=== PATIENT | female | born 1935 | race Caucasian/White ===

== ENCOUNTER 2018-06-08 17:49 | Inpatient (IN) ==
[2018-06-09] MEDS: *HR* OxyCODONE Immed Rel 5 MG TABLET PO PRN ×3 (04:34→23:52)
[2018-06-09 06:05] LABS: Basophils # 0.1 K/mcL (0.0-0.2); Basophils % 1.3 %; Eosinophils # 0.3 K/mcL (0.0-0.6); Eosinophils % 3.9 %; Hematocrit 34.1 % (35.3-44.9); Hemoglobin 11.3 g/dL (11.5-15.4); Immature Granulocytes % 0.9 % (0-4); Lymphocytes # 1.8 K/mcL (0.6-4.6); Lymphocytes % 27.6 %; Mean Corpuscular HGB Conc 33.1 g/dL (31.6-35.5); Mean Corpuscular Hemoglobin 32.8 pg (28.0-33.3); Mean Corpuscular Volume 98.8 fL (83.0-100.0); Mean Platelet Volume 10.9 fL (9.4-12.4); Monocytes # 0.8 K/mcL (0.0-1.3); Monocytes % 13.2 %; Neutrophils # 3.4 K/mcL (1.6-8.9); Platelet Count 220 K/mcL (140-400); Red Blood Count 3.45 M/mcL (3.82-4.97); Red Cell Distribution Width 14.2 % (11.5-14.5); Segmented Neutrophils % 53.1 %
[2018-06-09 06:08] LABS: Prothrombin Time 11.7 Seconds (9.4-12.1)
[2018-06-09] MEDS: Multivit/Ca/Min/Fe/FA 1 TAB TABLET PO SCH (09:05)
[2018-06-09] MEDS: Aspirin 81 MG TAB.CHEW PO SCH (09:05)
[2018-06-09] MEDS: diazePAM 2 MG TABLET PO SCH ×2 (09:06→20:38)
[2018-06-09] MEDS: *HR* Heparin 5,000 UNIT/ML VIAL SQ SCH ×3 (09:06→23:49)
[2018-06-09] MEDS: Lactobacillus 1 EACH CAP.SPRINK PO SCH (09:06)
[2018-06-09 11:21] LABS: Albumin 3.7 g/dL (3.5-5.7); Albumin/Globulin Ratio 1.3 (1.1-2.2); Bilirubin,Total 0.6 mg/dL (0.3-1.0); Calcium 9.5 mg/dL (8.6-10.3); Globulin 2.9 g/dL (2.4-3.5); Potassium 4.3 mEq/L (3.5-5.1); Total Protein 6.6 g/dL (6.4-8.9)
--- NOTE | 2018-06-09 12:29 | Internal Med History&Physical ---
Date of Encounter: 06/09/18 Time of Encounter: 12:31 Assessment and Plan (1) Closed right hip fracture Current visit: Yes Status: Acute PT and OT to eval and treat. Will follow progress. Continue current pain medications. Follow up with ortho as scheduled. Surgery was with Dr. Mitchell on June 05 Qualifiers: Encounter type: sequela Qualified Code(s): S72.001S - Fracture of unspecified part of neck of right femur, sequela (2) DVT prophylaxis Current visit: Yes Status: Acute continue heparin (3) Fracture of right ulnar styloid Current visit: Yes Status: Acute Continue cast. Follow up with ortho as scheduled. Continue current pain medication. Qualifiers: Encounter type: sequela Fracture type: closed Fracture alignment: nondisplaced Qualified Code(s): S52.614S - Nondisplaced fracture of right ulna styloid process, sequela (4) Hyperlipidemia Current visit: Yes Status: Acute Continue current Statin Qualifiers: Hyperlipidemia type: unspecified Qualified Code(s): E78.5 - Hyperlipidemia , unspecified (5) Hypertension Current visit: Yes Status: Acute Controlled with current medication. Will monitor blood pressure. Qualifiers: Hypertension type: essential hypertension Qualified Code(s): I10 - Essential (primary) hypertension Internal Medicine - H&P: HPI Admitted From: Hospital to Hospital Transfer Plans for Post Hospital Care: Home History of present illness: Ms. Lizarraga is a 82 year old female admitted to inpatient rehab unit from [facility] status post right hip fracture and right radial styloid fracture after a fall. Past medical history includes arthritis, hypertension and hyperlipidemia. States she fell in her kitchen and hit her right arm as she felt to the ground. States pain is in control at this time. Medications. Denies fever, chills, nausea, vomiting or diarrhea. Denies chest pain or shortness of breath. Patient lives at home in a two-story home however states she does not have to go upstairs. Everything is set up for first-floor living. Past Med Surg Social Fam HX - Past Medical History Medical history: arthritis, GERD, hyperlipidemia, hypertension, other Additional medical history: Hypothyroidism, Anxiety Psychiatric history: anxiety - Past Surgical History Additional surgical history: Back surgery x3. Hernia surgeries x2. Lt foot surgery. Lt toe surgery. Varicose vein surgery. Rt knee surgery - Social History Smoking Status: Never smoker Smokeless Tobacco Status: No Alcohol use: none Drug use: none - Family History Mother Living Status: Hx Family Cancer: Yes Father Living Status: Hx Family Cardiac Disorders: Yes Internal Medicine - H&P: Meds Amitriptyline [Elavil] 50 mg PO HS 07/09/16 [History] Furosemide [Lasix] 20 mg PO Q48H 07/09/16 [History] Omeprazole [PriLOSEC] 20 mg PO DAILY 07/09/16 [History] Pravastatin Sodium [Pravachol] 40 mg PO DAILY 07/09/16 [History] Zonisamide [Zonegran] 100 mg PO HS 07/09/16 [History] Aspirin Enteric Coated [Aspirin EC] 162 mg PO DAILY 06/04/18 [History] Calcium Carbonate [Calcium] 500 mg PO DAILY 06/04/18 [History] Lactobacillus Acidophilus/Fos [Acidophilus Probiotic Tablet] 1 each PO DAILY 07/12 [History] Lisinopril [Zestril] 10 mg PO DAILY 06/04/18 [History] Multivit-Minerals/Folic/Ginkgo [One Daily For Women 50+ Adv Tb] 1 each PO DAILY 06/04/18 [History] OXYCODONE Oral CONC [Oxycodone Oral Conc] 10 mg SL Q4H PRN 3 Days #18 oral.syg 06/08/18 [Rx] diazePAM [Valium] 2 mg PO BID 3 Days #6 tablet 06/08/18 [Rx] 3 Allergy/AdvReac Type Severity Reaction Status Date / Time Penicillins Allergy Hives Verified 06/04/18 11:37 levofloxacin [From Levaquin] AdvReac Tendonitis Verified 06/04/18 11:37 All Systems PM: A 10-system review of systems was performed and is negative for pertinent findings except as documented above in the HPI. - Constitutional Constitutional: no chills, no fever(s), no night sweats - EENT Eyes: no change in vision, no discharge, no pain, no photophobia Ears: no ear discharge, no ear pain, no tinnitus Nose, mouth and throat: no dysphagia, no nasal discharge, no neck pain, no sore throat - Cardiovascular Cardiovascular ROS IM: no chest pain, no diaphoresis, no dyspnea, no lightheadedness, no palpitations, no syncope - Respiratory Respiratory: no cough, no dyspnea, no wheezing, no excessive phlegm production - Gastrointestinal Gastrointestinal: no abdominal pain, no diarrhea, no hematemesis, no hematochezia, no melena, no nausea, no vomiting - Genitourinary Genitourinary: no change in urinary stream, no dysuria, no flank pain, no hematuria - Musculoskeletal Musculoskeletal ROS IM: no numbness, no tingling - Integumentary Integumentary IM: no rash, no unusual bruising - Neurological Neurological ROS: no confusion, no convulsions, no focal weakness, no numbness, no tingling, no tremor(s) - Hematologic/Lymphatic Hematologic/Lymphatic: no easy bruising - Constitutional Vitals: Temp Pulse Resp BP Pulse Ox 98.4 F 79 16 125/69 90 06/09/18 09:00 06/09/18 09:00 06/09/18 09:00 06/09/18 09:00 06/09/18 09:00 General appearance: Present: cooperative, A&O X 3, pleasant, no acute distress, answers questions appropriately - Head Head exam: Present: atraumatic, normocephalic - Eye Eye exam: Present: PERRL, conjuntiva pink, sclera anicteric Pupils: Present: PERRL - Neck Neck exam general surgery: Present: supple, trachea midline. Absent: lymphadenopathy - Respiratory Respiratory exam: Present: CTAB. Absent: accessory muscle use, rales, rhonchi, wheezes - Cardiovascular Cardiovascular exam: Present: RRR, +S1, +S2. Absent: diastolic murmur, gallop, rubs, systolic murmur - GI/Abdominal GI/Abdominal exam: Present: normal bowel sounds, soft, no peritoneal signs. Absent: distended, tenderness - Extremities Exam Extremities exam: Present: warm, radial pulses palpable and symmetrical. Absent : calf tenderness, cyanotic, pedal edema Additional comments: Right forearm in cast. Moderate amount of edema 2 fingers. Capillary refill normal. - Incison Comments: Right hip incision dressing dry and intact. Surrounding ecchymosis. - Neurological Exam Neurological exam: Present: CN II-XII intact, oriented X3, no focal deficits. Absent: pronater drift, facial droop, speech deficit - Skin Skin exam: Present: dry, intact Internal Med - H&P Results - Labs CBC & Chem 7: 06/09/18 05:50 06/09/18 11:00 Labs: Short CBC 06/09/18 Range/Units 05:50 WBC 6.4 (4.3-11.1) K/mcL Hgb 11.3 L (11.5-15.4) g/dL Hct 34.1 L (35.3-44.9) % Plt Count 220 (140-400) K/mcL Neutrophils # 3.4 (1.6-8.9) K/mcL BMP 06/09/18 11:00 Sodium 140 Potassium 4.3 Chloride 103 Carbon Dioxide 26 BUN 13 Creatinine 1.11 Glucose 100 Calcium 9.5 Liver Function 06/09/18 Range/Units 11:00 Total Bilirubin 0.6 (0.3-1.0) mg/dL AST 31 (13-39) Units/L ALT 25 (7-52) Units/L Alkaline Phosphatase 74 (34-104) Units/L Albumin 3.7 (3.5-5.7) g/dL
[2018-06-10] MEDS: *HR* OxyCODONE Immed Rel 5 MG TABLET PO PRN ×2 (07:49→16:58)
[2018-06-10] MEDS: *HR* Heparin 5,000 UNIT/ML VIAL SQ SCH ×2 (07:50→16:51)
[2018-06-10] MEDS: Multivit/Ca/Min/Fe/FA 1 TAB TABLET PO SCH (07:50)
[2018-06-10] MEDS: Aspirin 81 MG TAB.CHEW PO SCH (07:50)
[2018-06-10] MEDS: Lactobacillus 1 EACH CAP.SPRINK PO SCH (07:50)
[2018-06-10] MEDS: diazePAM 2 MG TABLET PO SCH ×2 (07:50→19:56)
--- NOTE | 2018-06-10 10:43 | Internal Med Progress Note ---
Date of Encounter: 06/10/18 Time of Encounter: 10:41 - Assessment and plan (1) Closed right hip fracture Current Visit: Yes Status: Acute Assessment and plan: Continue PT and OT. Will follow progress. Continue current pain medication. Follow up with ortho as scheduled. Qualifiers: Encounter type: sequela Qualified Code(s): S72.001S - Fracture of unspecified part of neck of right femur, sequela (2) DVT prophylaxis Current Visit: Yes Status: Acute Assessment and plan: Continue heparin (3) Fracture of right ulnar styloid Current Visit: Yes Status: Acute Assessment and plan: Continue cast. Follow up with ortho as scheduled. Pain controlled. Qualifiers: Encounter type: sequela Fracture type: closed Fracture alignment: nondisplaced Qualified Code(s): S52.614S - Nondisplaced fracture of right ulna styloid process, sequela (4) Hyperlipidemia Current Visit: Yes Status: Acute Assessment and plan: Continue current Statin Qualifiers: Hyperlipidemia type: unspecified Qualified Code(s): E78.5 - Hyperlipidemia , unspecified (5) Hypertension Current Visit: Yes Status: Acute Assessment and plan: Controlled with current medication. Monitor blood pressure. Qualifiers: Hypertension type: essential hypertension Qualified Code(s): I10 - Essential (primary) hypertension - Time Spent With Patient 25 - 35 minutes - Subjective Interval history: Participating well with therapy men assist to transfer. Ambulating with Walker times 60 feet with physical therapy. Pain controlled with current medication. Maintaining appetite and hydration. Bowels have not moved since hip surgery. Discussed ordering Miralax twice a day. Patient takes at home. Denies shortness of breath, chest pain, should fever, chills, nausea vomiting or diarrhea. - Constitutional Vitals: Temp Pulse Resp BP Pulse Ox 97.8 F 98 18 143/81 98 06/10/18 07:45 06/10/18 07:45 06/10/18 07:45 06/10/18 07:45 06/10/18 07:45 General appearance: Present: cooperative, A&O X 3, pleasant, no acute distress, answers questions appropriately - Head Head exam: Present: atraumatic, normocephalic - Eye Eye exam: Present: PERRL, conjuntiva pink, sclera anicteric Pupils: Present: PERRL - Neck Neck exam general surgery: Present: supple, trachea midline. Absent: lymphadenopathy - Respiratory Respiratory exam: Present: CTAB. Absent: accessory muscle use, rales, rhonchi, wheezes - Cardiovascular Cardiovascular exam: Present: RRR, +S1, +S2. Absent: diastolic murmur, gallop, rubs, systolic murmur - GI/Abdominal GI/Abdominal exam: Present: normal bowel sounds, soft, no peritoneal signs. Absent: distended, tenderness - Extremities Exam Extremities exam: Present: warm, radial pulses palpable and symmetrical. Absent : calf tenderness, cyanotic, pedal edema Additional comments: Right arm in cast. Normal capillary refill. Slight edema to fingers - Incison Comments: Right hip incision dressing dry and intact. Surrounding ecchymosis. - Neurological Exam Neurological exam: Present: CN II-XII intact, oriented X3, no focal deficits. Absent: pronater drift, facial droop, speech deficit - Skin Skin exam: Present: dry, intact Internal Medicine: Result - Labs CBC & Chem 7: 06/09/18 05:50 06/09/18 11:00 Labs: BMP 06/09/18 11:00 Sodium 140 Potassium 4.3 Chloride 103 Carbon Dioxide 26 BUN 13 Creatinine 1.11 Glucose 100 Calcium 9.5 Liver Function 06/09/18 Range/Units 11:00 Total Bilirubin 0.6 (0.3-1.0) mg/dL AST 31 (13-39) Units/L ALT 25 (7-52) Units/L Alkaline Phosphatase 74 (34-104) Units/L Albumin 3.7 (3.5-5.7) g/dL - ABG Interpretation ABG results: PT/INR, D-dimer PT 11.7 Seconds (9.4-12.1) 06/09/18 05:50 Consult Discharge Plan - Plan Referrals: Brittany Queen MD [Primary Care Provider] -
--- NOTE | 2018-06-11 13:56 | Internal Med Progress Note ---
Date of Encounter: 06/11/18 Time of Encounter: 13:54 - Assessment and plan (1) Closed right hip fracture Current Visit: Yes Status: Acute Assessment and plan: We will continue with therapies as planned. Tolerating well thus far. Qualifiers: Encounter type: sequela Qualified Code(s): S72.001S - Fracture of unspecified part of neck of right femur, sequela (2) Leukocytosis Current Visit: No Status: Acute Assessment and plan: Essentially resolved. Qualifiers: Leukocytosis type: unspecified Qualified Code(s): D72.829 - Elevated white blood cell count, unspecified (3) Hypertension Current Visit: Yes Status: Acute Assessment and plan: Clinically stable. We will continue home regimen and follow. Qualifiers: Hypertension type: essential hypertension Qualified Code(s): I10 - Essential (primary) hypertension (4) Hyperlipidemia Current Visit: Yes Status: Acute Assessment and plan: Clinically stable. We will continue home regimen and follow. Qualifiers: Hyperlipidemia type: unspecified Qualified Code(s): E78.5 - Hyperlipidemia, unspecified (5) Fracture of right ulnar styloid Current Visit: Yes Status: Acute Assessment and plan: Well-tolerated and therapy persists. Qualifiers: Encounter type: sequela Fracture type: closed Fracture alignment: nondisplaced Qualified Code(s): S52.614S - Nondisplaced fracture of right ulna styloid process, sequela - Subjective Interval history: Patient without complaint. She is tired after therapy but feels that she is otherwise doing okay. Moving bowels well. No other complaints. Patient has no complaint of chest discomfort, dyspnea, orthopnea, palpitations, nausea or vomiting, constipation or diarrhea, other changes in bowel habits, difficulty with urination, rash or itching, or other new complaints, except as mentioned above. Review of systems is otherwise negative. I discussed management of her care with nursing staff. - Constitutional Vitals: Temp Pulse Resp BP Pulse Ox 97.6 F 84 16 119/85 95 06/11/18 07:00 06/11/18 07:00 06/11/18 07:00 06/11/18 07:00 06/11/18 07:00 Exam: Examination: (Except as mentioned above): General: In no apparent distress. Alert and oriented 3. Nondiaphoretic. Head: Atraumatic and normocephalic. Respiratory: No use of accessory muscles. Lungs are clear throughout. Normal airflow. Cardiovascular: Regular rate and rhythm without murmur appreciated. Abdomen: Bowel sounds are normal. No hepatosplenomegaly mass or tenderness appreciated. Obese and therefore difficult to palpate deeply. Extremities: No cyanosis clubbing or edema. Skin: Warm and non-diaphoretic with no new lesions noted. Internal Medicine: Result - Labs CBC & Chem 7: 06/09/18 05:50 06/09/18 11:00 - ABG Interpretation ABG results: PT/INR, D-dimer PT 11.7 Seconds (9.4-12.1) 06/09/18 05:50 Consult Discharge Plan - Plan Referrals: Brittany Queen MD [Primary Care Provider] -
[2018-06-11] MEDS ORDERED: *HR* Heparin 5,000 UNIT/ML VIAL IVP ONE (14:59)
[2018-06-11] MEDS ORDERED: Multivit/Ca/Min/Fe/FA 1 TAB TABLET PO ONE (14:59)
[2018-06-11] MEDS ORDERED: diazePAM 2 MG TABLET PO ONE (14:59)
[2018-06-11] MEDS ORDERED: Lactobacillus 1 EACH CAP.SPRINK PO ONE (14:59)
[2018-06-11] MEDS ORDERED: Aspirin 81 MG TAB.CHEW PO ONE (14:59)
[2018-06-11] MEDS ORDERED: *HR* OxyCODONE Immed Rel 5 MG TABLET PO ONE (14:59)
[2018-06-11] MEDS: *HR* Heparin 5,000 UNIT/ML VIAL SQ SCH ×3 (16:53→23:49)
[2018-06-11] MEDS: *HR* OxyCODONE Immed Rel 5 MG TABLET PO PRN (20:01)
[2018-06-11] MEDS: diazePAM 2 MG TABLET PO SCH ×2 (20:01→20:05)
[2018-06-11] MEDS: Aspirin 81 MG TAB.CHEW PO SCH (20:04)
[2018-06-11] MEDS: Multivit/Ca/Min/Fe/FA 1 TAB TABLET PO SCH (20:05)
[2018-06-11] MEDS: Lactobacillus 1 EACH CAP.SPRINK PO SCH (20:05)
[2018-06-12] MEDS: Multivit/Ca/Min/Fe/FA 1 TAB TABLET PO SCH (09:40)
[2018-06-12] MEDS: Aspirin 81 MG TAB.CHEW PO SCH (09:40)
[2018-06-12] MEDS: diazePAM 2 MG TABLET PO SCH ×2 (09:40→19:41)
[2018-06-12] MEDS: Lactobacillus 1 EACH CAP.SPRINK PO SCH (09:41)
[2018-06-12] MEDS: *HR* Heparin 5,000 UNIT/ML VIAL SQ SCH ×3 (09:41→23:49)
[2018-06-12] MEDS: *HR* OxyCODONE Immed Rel 5 MG TABLET PO PRN ×2 (09:41→19:40)
--- NOTE | 2018-06-12 11:49 | Internal Med Progress Note ---
Addendum entered and electronically signed by Ross Calloway MD 06/12/18 12:51: I have personally performed a face to face evaluation on this patient. I have r eviewed and agree with the care plan. History and Exam by me shows: Patient feels that she is getting better with therapies. She is moving her bowels well. She had some shoulder pain with therapy but this is fine, at rest. Discussed care with other providers and/or nursing. Patient has no complaint of chest discomfort, dyspnea, orthopnea, palpitations, nausea or vomiting, constipation or diarrhea, other changes in bowel habits, difficulty with urination, rash or itching, or other new complaints, except as mentioned above. Review of systems is otherwise negative. Examination: (Except as mentioned above): General: In no apparent distress. Alert and oriented 3. Nondiaphoretic. Head: Atraumatic and normocephalic. Respiratory: No use of accessory muscles. Lungs are clear throughout. Normal airflow. Cardiovascular: Regular rate and rhythm without murmur appreciated. Abdomen: Bowel sounds are normal. No hepatosplenomegaly mass or tenderness appreciated. Obese and therefore difficult to palpate deeply. Extremities: No cyanosis clubbing or edema. Skin: Warm and non-diaphoretic with no new lesions noted. Original Note: Date of Encounter: 06/12/18 Time of Encounter: 11:47 - Assessment and plan (1) Closed right hip fracture Current Visit: Yes Status: Acute Assessment and plan: Continue PT and OT. Will follow progress. Continue current pain medication. Follow up with ortho as scheduled. Qualifiers: Encounter type: sequela Qualified Code(s): S72.001S - Fracture of unspecified part of neck of right femur, sequela (2) DVT prophylaxis Current Visit: Yes Status: Acute Assessment and plan: Continue heparin (3) Fracture of right ulnar styloid Current Visit: Yes Status: Acute Assessment and plan: Continue cast. Follow up with ortho as scheduled. Pain controlled. Qualifiers: Encounter type: sequela Fracture type: closed Fracture alignment: nondisplaced Qualified Code(s): S52.614S - Nondisplaced fracture of right ulna styloid process, sequela (4) Hyperlipidemia Current Visit: Yes Status: Acute Assessment and plan: continue current meds. Qualifiers: Hyperlipidemia type: unspecified Qualified Code(s): E78.5 - Hyperlipidemia, unspecified (5) Hypertension Current Visit: Yes Status: Acute Assessment and plan: Controlled with current medication. Monitor blood pressure. Qualifiers: Hypertension type: essential hypertension Qualified Code(s): I10 - Essential (primary) hypertension - Time Spent With Patient less than 15 minutes - Subjective Interval history: Participating well with therapy. Ambulating with Walker with physical therapy. Pain controlled with current medication. Maintaining appetite and hydration. Bowels moved last night after miralax and prune juice. Denies shortness of breath, chest pain, should fever, chills, nausea vomiting or diarrhea. - Constitutional Vitals: Temp Pulse Resp BP Pulse Ox 98.5 F 82 16 115/70 97 06/12/18 07:55 06/12/18 07:55 06/12/18 07:55 06/12/18 07:55 06/12/18 07:55 General appearance: Present: cooperative, A&O X 3, pleasant, no acute distress, answers questions appropriately - Head Head exam: Present: atraumatic, normocephalic - Eye Eye exam: Present: PERRL, conjuntiva pink, sclera anicteric Pupils: Present: PERRL - Neck Neck exam general surgery: Present: supple, trachea midline. Absent: lymphadenopathy - Respiratory Respiratory exam: Present: CTAB. Absent: accessory muscle use, rales, rhonchi, wheezes - Cardiovascular Cardiovascular exam: Present: RRR, +S1, +S2. Absent: diastolic murmur, gallop, rubs, systolic murmur - GI/Abdominal GI/Abdominal exam: Present: normal bowel sounds, soft, no peritoneal signs. Absent: distended, tenderness - Extremities Exam Extremities exam: Present: warm, radial pulses palpable and symmetrical. Absent: calf tenderness, cyanotic, pedal edema Additional comments: To right forearm. Slight edema to fingers. capillary refill normal. - Incison Comments: Right hip incision dressing dry and intact. - Neurological Exam Neurological exam: Present: CN II-XII intact, oriented X3, no focal deficits. Absent: pronater drift, facial droop, speech deficit - Skin Skin exam: Present: dry, intact Internal Medicine: Result - Labs CBC & Chem 7: 06/09/18 05:50 06/09/18 11:00 - ABG Interpretation ABG results: PT/INR, D-dimer PT 11.7 Seconds (9.4-12.1) 06/09/18 05:50 Consult Discharge Plan - Plan Referrals: Brittany Queen MD [Primary Care Provider] -
[2018-06-13] MEDS: Aspirin 81 MG TAB.CHEW PO SCH (07:57)
[2018-06-13] MEDS: Multivit/Ca/Min/Fe/FA 1 TAB TABLET PO SCH (07:57)
[2018-06-13] MEDS: diazePAM 2 MG TABLET PO SCH ×2 (07:58→19:30)
[2018-06-13] MEDS: *HR* Heparin 5,000 UNIT/ML VIAL SQ SCH ×3 (07:58→23:07)
[2018-06-13] MEDS: Lactobacillus 1 EACH CAP.SPRINK PO SCH (07:58)
[2018-06-13] MEDS: *HR* OxyCODONE Immed Rel 5 MG TABLET PO PRN ×2 (08:11→23:07)
--- NOTE | 2018-06-13 15:08 | Internal Med Progress Note ---
Date of Encounter: 06/13/18 Time of Encounter: 14:55 - Assessment and plan (1) Hypertension Current Visit: Yes Status: Acute Assessment and plan: Continue current therapy. Qualifiers: Hypertension type: essential hypertension Qualified Code(s): I10 - Essential (primary) hypertension (2) Hyperlipidemia Current Visit: Yes Status: Acute Assessment and plan: Continue current therapy. Qualifiers: Hyperlipidemia type: unspecified Qualified Code(s): E78.5 - Hyperlipidemia, unspecified (3) DVT prophylaxis Current Visit: Yes Status: Acute Assessment and plan: Continue subQ heparin. (4) Closed right hip fracture Current Visit: Yes Status: Acute Assessment and plan: Continue current therapy. F/U with ortho as planned. Qualifiers: Encounter type: sequela Qualified Code(s): S72.001S - Fracture of unspecified part of neck of right femur, sequela (5) Fracture of right ulnar styloid Current Visit: Yes Status: Acute Assessment and plan: Continue current therapy. Qualifiers: Encounter type: sequela Fracture type: closed Fracture alignment: nondisplaced Qualified Code(s): S52.614S - Nondisplaced fracture of right ulna styloid process, sequela - Time Spent With Patient less than 15 minutes - Subjective Interval history: Doing well and walking "okay." No concerns at this time. - Constitutional Vitals: Temp Pulse Resp BP Pulse Ox 98.9 F 71 16 127/72 93 06/13/18 07:05 06/13/18 07:05 06/13/18 07:05 06/13/18 07:05 06/13/18 07:05 General appearance: Present: cooperative, A&O X 3, pleasant, no acute distress, answers questions appropriately Exam: Gen: A&Ox3, NAD. HEENT: NCAT. Neck: No palpable lymphadenopathy or thyromegaly. CV: RRR, S1S2. No murmur. Lungs: CTAB. Abd: (+)BS. NDNT. Neuro: Non-focal. Skin: No rash. Ext: No pitting edema. Right hand in immobilizer. Internal Medicine: Result - Labs CBC & Chem 7: 06/09/18 05:50 06/09/18 11:00 - ABG Interpretation ABG results: PT/INR, D-dimer PT 11.7 Seconds (9.4-12.1) 06/09/18 05:50 Consult Discharge Plan - Plan Referrals: Brittany Queen MD [Primary Care Provider] -
[2018-06-14] MEDS: Multivit/Ca/Min/Fe/FA 1 TAB TABLET PO SCH (08:33)
[2018-06-14] MEDS: Lactobacillus 1 EACH CAP.SPRINK PO SCH (08:33)
[2018-06-14] MEDS: Aspirin 81 MG TAB.CHEW PO SCH (08:33)
[2018-06-14] MEDS: *HR* Heparin 5,000 UNIT/ML VIAL SQ SCH ×2 (08:33→16:26)
[2018-06-14] MEDS: diazePAM 2 MG TABLET PO SCH ×2 (08:33→19:43)
[2018-06-14] MEDS: *HR* OxyCODONE Immed Rel 5 MG TABLET PO PRN ×2 (08:42→19:43)
--- NOTE | 2018-06-14 13:17 | Internal Med Progress Note ---
Date of Encounter: 06/14/18 Time of Encounter: 13:00 - Assessment and plan (1) Hypertension Current Visit: Yes Status: Acute Assessment and plan: Continue current therapy and adjust as appropriate. Qualifiers: Hypertension type: essential hypertension Qualified Code(s): I10 - Essential (primary) hypertension (2) Hyperlipidemia Current Visit: Yes Status: Acute Assessment and plan: Continue current therapy. Qualifiers: Hyperlipidemia type: unspecified Qualified Code(s): E78.5 - Hyperlipidemia, unspecified (3) DVT prophylaxis Current Visit: Yes Status: Acute Assessment and plan: Continue subQ heparin. (4) Closed right hip fracture Current Visit: Yes Status: Acute Assessment and plan: Continue current therapy. F/U with ortho as planned. Qualifiers: Encounter type: sequela Qualified Code(s): S72.001S - Fracture of unspecified part of neck of right femur, sequela (5) Fracture of right ulnar styloid Current Visit: Yes Status: Acute Assessment and plan: Continue current therapy. Qualifiers: Encounter type: sequela Fracture type: closed Fracture alignment: nondisplaced Qualified Code(s): S52.614S - Nondisplaced fracture of right ulna styloid process, sequela - Time Spent With Patient less than 15 minutes - Subjective Interval history: Doing well. No concerns at this time. - Constitutional Vitals: Temp Pulse Resp BP Pulse Ox 98.5 F 68 16 101/59 100 06/14/18 07:00 06/14/18 07:00 06/14/18 07:00 06/14/18 07:00 06/14/18 07:00 General appearance: Present: cooperative, A&O X 3, pleasant, no acute distress, answers questions appropriately Exam: Gen: A&Ox3, NAD. HEENT: NCAT. Neck: No palpable lymphadenopathy or thyromegaly. CV: RRR, S1S2. No murmur. Lungs: CTAB. Abd: (+)BS. NDNT. Neuro: Non-focal. Skin: No rash. Ext: No pitting edema. Right hand in immobilizer. Internal Medicine: Result - Labs CBC & Chem 7: 06/09/18 05:50 06/09/18 11:00 - ABG Interpretation ABG results: PT/INR, D-dimer PT 11.7 Seconds (9.4-12.1) 06/09/18 05:50 Consult Discharge Plan - Plan Referrals: Brittany Queen MD [Primary Care Provider] -
[2018-06-15] MEDS: *HR* Heparin 5,000 UNIT/ML VIAL SQ SCH ×4 (00:40→23:20)
[2018-06-15 05:55] LABS: Basophils # 0.1 K/mcL (0.0-0.2); Basophils % 1.3 %; Eosinophils # 0.2 K/mcL (0.0-0.6); Eosinophils % 3.4 %; Hematocrit 32.3 % (35.3-44.9); Hemoglobin 10.7 g/dL (11.5-15.4); Immature Granulocytes % 0.8 % (0-4); Lymphocytes # 2.3 K/mcL (0.6-4.6); Lymphocytes % 36.7 %; Mean Corpuscular HGB Conc 33.1 g/dL (31.6-35.5); Mean Corpuscular Volume 99.7 fL (83.0-100.0); Mean Platelet Volume 10.3 fL (9.4-12.4); Monocytes # 0.7 K/mcL (0.0-1.3); Monocytes % 10.7 %; Neutrophils # 2.9 K/mcL (1.6-8.9); Platelet Count 342 K/mcL (140-400); Red Blood Count 3.24 M/mcL (3.82-4.97); Red Cell Distribution Width 14.6 % (11.5-14.5); Segmented Neutrophils % 47.1 %
[2018-06-15 06:14] LABS: Potassium 3.7 mEq/L (3.5-5.1)
[2018-06-15] MEDS: Aspirin 81 MG TAB.CHEW PO SCH (07:51)
[2018-06-15] MEDS: Multivit/Ca/Min/Fe/FA 1 TAB TABLET PO SCH (07:51)
[2018-06-15] MEDS: Lactobacillus 1 EACH CAP.SPRINK PO SCH (07:52)
[2018-06-15] MEDS: diazePAM 2 MG TABLET PO SCH ×2 (07:52→20:30)
--- NOTE | 2018-06-15 13:04 | Internal Med Progress Note ---
Date of Encounter: 06/15/18 Time of Encounter: 13:02 - Assessment and plan (1) Closed right hip fracture Current Visit: Yes Status: Acute Assessment and plan: She is doing well and participating well with therapy. She is for discharge, soon. Qualifiers: Encounter type: sequela Qualified Code(s): S72.001S - Fracture of unspecified part of neck of right femur, sequela (2) Leukocytosis Current Visit: No Status: Acute Assessment and plan: Resolved. Qualifiers: Leukocytosis type: unspecified Qualified Code(s): D72.829 - Elevated white blood cell count, unspecified (3) Hypertension Current Visit: Yes Status: Acute Assessment and plan: Clinically stable. Qualifiers: Hypertension type: essential hypertension Qualified Code(s): I10 - Essential (primary) hypertension (4) Hyperlipidemia Current Visit: Yes Status: Acute Assessment and plan: Continue current regimen. Qualifiers: Hyperlipidemia type: unspecified Qualified Code(s): E78.5 - Hyperlipidemia, unspecified (5) Fracture of right ulnar styloid Current Visit: Yes Status: Acute Assessment and plan: She is tolerating well and is participating in therapy without difficulty. Qualifiers: Encounter type: sequela Fracture type: closed Fracture alignment: nondisplaced Qualified Code(s): S52.614S - Nondisplaced fracture of right ulna styloid process, sequela - Subjective Interval history: Patient without complaint. She is pleased with her progress and is looking forward to going home, tomorrow. She states that bowels and bladder are moving well. Patient has no complaint of chest discomfort, dyspnea, orthopnea, palpitations, nausea or vomiting, constipation or diarrhea, other changes in bowel habits, difficulty with urination, rash or itching, or other new complaints, except as mentioned above. Review of systems is otherwise negative. I discussed management of her care with nursing staff. - Constitutional Vitals: Temp Pulse Resp BP Pulse Ox 98.0 F 71 16 115/63 94 06/15/18 06:45 06/15/18 06:45 06/15/18 06:45 06/15/18 06:45 06/15/18 06:45 Exam: Examination: (Except as mentioned above): General: In no apparent distress. Alert and oriented 3. Nondiaphoretic. Head: Atraumatic and normocephalic. Respiratory: No use of accessory muscles. Lungs are clear throughout. Normal airflow. Cardiovascular: Regular rate and rhythm without murmur appreciated. Abdomen: Bowel sounds are normal. No hepatosplenomegaly mass or tenderness appreciated. Obese and therefore difficult to palpate deeply. Patient is examined upright in chair and this also limits exam. Extremities: No cyanosis clubbing or change in edema. She has trace right ankle edema. Skin: Warm and non-diaphoretic with no new lesions noted. Internal Medicine: Result - Labs CBC & Chem 7: 06/15/18 05:50 06/15/18 05:50 Labs: Short CBC 06/15/18 Range/Units 05:50 WBC 6.2 (4.3-11.1) K/mcL Hgb 10.7 L (11.5-15.4) g/dL Hct 32.3 L (35.3-44.9) % Plt Count 342 D (140-400) K/mcL Neutrophils # 2.9 (1.6-8.9) K/mcL BMP 06/15/18 05:50 Sodium 139 Potassium 3.7 Chloride 108 H Carbon Dioxide 25 BUN 15 Creatinine 1.12 Glucose 106 H Calcium 9.0 - ABG Interpretation ABG results: PT/INR, D-dimer PT 11.7 Seconds (9.4-12.1) 06/09/18 05:50 Consult Discharge Plan - Plan Referrals: Brittany Queen MD [Primary Care Provider] -
[2018-06-15] MEDS: *HR* OxyCODONE Immed Rel 5 MG TABLET PO PRN (20:31)
[2018-06-16 07:32] VITALS: BP 128/67
[2018-06-16] MEDS: Multivit/Ca/Min/Fe/FA 1 TAB TABLET PO SCH (07:57)
[2018-06-16] MEDS: *HR* Heparin 5,000 UNIT/ML VIAL SQ SCH (07:57)
[2018-06-16] MEDS: Aspirin 81 MG TAB.CHEW PO SCH (07:57)
[2018-06-16] MEDS: diazePAM 2 MG TABLET PO SCH (07:58)
[2018-06-16] MEDS: Lactobacillus 1 EACH CAP.SPRINK PO SCH (07:58)
--- NOTE | 2018-06-16 11:26 | Discharge Summary ---
Date of Encounter: 06/16/18 Time of Encounter: 10:54 - Discharge Diagnosis (1) Closed right hip fracture Priority: Primary Status: Acute Comments: Improving. Pain controlled with current medication. Continue home physical therapy. Follow up with ortho as scheduled. Qualifiers: Encounter type: sequela Qualified Code(s): S72.001S - Fracture of unspecified part of neck of right femur, sequela (2) Fracture of right ulnar styloid Priority: Primary Status: Acute Comments: Pain controlled with current medication. Continue to wear braces. Follow up with ortho as scheduled. Qualifiers: Encounter type: sequela Fracture type: closed Fracture alignment: nondisplaced Qualified Code(s): S52.614S - Nondisplaced fracture of right ulna styloid process, sequela (3) Hyperlipidemia Priority: Secondary Status: Chronic Comments: Controlled with current medication. Monitor with PCP. Qualifiers: Hyperlipidemia type: unspecified Qualified Code(s): E78.5 - Hyperlipidemia, unspecified (4) Hypertension Priority: Secondary Status: Chronic Comments: Controlled with current medication. Monitor blood pressure. Follow up with PCP. Qualifiers: Hypertension type: essential hypertension Qualified Code(s): I10 - Essential (primary) hypertension Hospital course: Ms. Lizarraga is a 82 year old female discharging to home from inpatient rehab status post right hip fracture and right radial styloid fracture after a fall. Patient is ambulating with platform wheeled walker. Ambulating 300 feet. Will continue with home health physical therapy. Pain is controlled with current medication. Follow up with ortho as scheduled. Discharge discussed with: patient, family, nurse, social work - Time Spent with Patient Total time spent providing and/or coordinating discharge services: Less than 30 minutes - Discharge Medications Home Medications: Amitriptyline [Elavil] 50 mg PO HS 07/09/16 [History] Furosemide [Lasix] 20 mg PO Q48H 07/09/16 [History] Omeprazole [PriLOSEC] 20 mg PO DAILY 07/09/16 [History] Pravastatin Sodium [Pravachol] 40 mg PO DAILY 07/09/16 [History] Zonisamide [Zonegran] 100 mg PO HS 07/09/16 [History] Aspirin Enteric Coated [Aspirin EC] 162 mg PO DAILY 06/04/18 [History] Calcium Carbonate [Calcium] 500 mg PO DAILY 06/04/18 [History] Lactobacillus Acidophilus/Fos [Acidophilus Probiotic Tablet] 1 each PO DAILY 06/04/18 [History] Lisinopril [Zestril] 10 mg PO DAILY 06/04/18 [History] Multivit-Minerals/Folic/Ginkgo [One Daily For Women 50+ Adv Tb] 1 each PO DAILY 06/04/18 [History] OXYCODONE Oral CONC [Oxycodone Oral Conc] 10 mg SL Q4H PRN 3 Days #18 oral.syg 06/08/18 [Rx] diazePAM [Valium] 2 mg PO BID 3 Days #6 tablet 06/08/18 [Rx] Polyethylene Glycol 3350 [MiraLAX] 17 gm PO DAILY PRN powd.pack 06/16/18 [Rx] Allergies/Adverse Reactions: Allergy/AdvReac Type Severity Reaction Status Date / Time Penicillins Allergy Hives Verified 06/04/18 11:37 levofloxacin [From Levaquin] AdvReac Tendonitis Verified 06/04/18 11:37 Date of admission: 06/08/18 18:30 Primary care physician: Brittany Queen MD Consults: 06/09/18 00:23 Consult to Physical Medicine/Rehab [CONS] Routine Reason for Consult: right hip fracture with pinning/right wrist fracture sp mechanical fall Call Completed: No 06/09/18 00:43 Consult to Occupational Therapy [CONS] Routine Comment: Evaluate, develop and implement POC Reason for Consult: right hip fracture with pinning/right wrist fracture sp mechanical fall Does patient have active BEDREST order?: No Is patient medically & hemodynamically stable?: Yes Patient assessed for mobility or mobilized this visit?: No Consult to Physical Therapy [CONS] Routine Comment: Evaluate, develop and implement POC Reason for Consult: right hip fracture with pinning/right wrist fracture sp mecahical fall Does patient have active BEDREST order?: No Is patient medically & hemodynamically stable?: Yes Patient assessed for mobility or mobilized this visit?: No Consult to Recreational Therapy [CONS] Routine Comment: Evaluate, develop and implement POC Discharging clinician: Leo Kwok Anticipated date of discharge: 06/16/18 - Constitutional Vitals: Temp Pulse Resp BP Pulse Ox 98.7 F 74 16 128/67 93 06/16/18 07:00 06/16/18 07:00 06/16/18 07:00 06/16/18 07:00 06/16/18 07:00 General appearance: Present: cooperative, A&O X 3, pleasant, no acute distress, answers questions appropriately - Head Head exam: Present: atraumatic, normocephalic - Eye Eye exam: Present: PERRL, conjuntiva pink, sclera anicteric Pupils: Present: PERRL - Neck Neck exam general surgery: Present: supple, trachea midline. Absent: lymphadenopathy - Respiratory Respiratory exam: Present: CTAB. Absent: accessory muscle use, rales, rhonchi, wheezes - Cardiovascular Cardiovascular exam: Present: RRR, +S1, +S2. Absent: diastolic murmur, gallop, rubs, systolic murmur - GI/Abdominal GI/Abdominal exam: Present: normal bowel sounds, soft, no peritoneal signs. Absent: distended, tenderness - Extremities Exam Extremities exam: Present: warm, radial pulses palpable and symmetrical. Absent: calf tenderness, cyanotic, pedal edema Additional comments: Right wrist brace intact slight non-pitting edema to write pedal area - Incison Comments: Right hip incision dressing dry and intact with scattered ecchymosis surrounding incision. - Neurological Exam Neurological exam: Present: CN II-XII intact, oriented X3, no focal deficits. Absent: pronater drift, facial droop, speech deficit - Skin Skin exam: Present: dry, intact - Patient Status Disposition: Home Health Service Condition: Good Functional capacity at discharge: uses cane/walker Overall status at discharge: patient is progressing back to baseline - Discharge Instructions Follow Up With: Brittany Queen MD [Primary Care Provider] - - Diet and Activity Activity: as per physical therapy Diet: advance to your usual diet
--- NOTE | 2018-06-16 11:28 | Physician Discharge Referral ---
Home Health/Hosp Referral Info Transfer to: Home Health Provider in Charge Post Discharge: PCP - Diagnosis (1) Closed right hip fracture Priority: Primary Status: Acute (2) Fracture of right ulnar styloid Priority: Primary Status: Acute (3) Hyperlipidemia Priority: Secondary Status: Chronic (4) Hypertension Priority: Secondary Status: Chronic - Respiratory Orders Smoking Cessation: Smoking cessation has been advised. For more information, call the [place] Tobacco Quit Line at 9-094-TWGH-NOW. - Diet/Nutrition Diet/Nutrition Orders: Regular - Activity Activity Orders: Ambulate, Walker - Services Needed Following services are medically necessary services: Nursing, Physical Therapy - Transfer Medications Home Medications: Amitriptyline [Elavil] 50 mg PO HS 07/09/16 [History] Furosemide [Lasix] 20 mg PO Q48H 07/09/16 [History] Omeprazole [PriLOSEC] 20 mg PO DAILY 07/09/16 [History] Pravastatin Sodium [Pravachol] 40 mg PO DAILY 07/09/16 [History] Zonisamide [Zonegran] 100 mg PO HS 07/09/16 [History] Aspirin Enteric Coated [Aspirin EC] 162 mg PO DAILY 06/04/18 [History] Calcium Carbonate [Calcium] 500 mg PO DAILY 06/04/18 [History] Lactobacillus Acidophilus/Fos [Acidophilus Probiotic Tablet] 1 each PO DAILY 06/04/18 [History] Lisinopril [Zestril] 10 mg PO DAILY 06/04/18 [History] Multivit-Minerals/Folic/Ginkgo [One Daily For Women 50+ Adv Tb] 1 each PO DAILY 06/04/18 [History] OXYCODONE Oral CONC [Oxycodone Oral Conc] 10 mg SL Q4H PRN 3 Days #18 oral.syg 06/08/18 [Rx] diazePAM [Valium] 2 mg PO BID 3 Days #6 tablet 06/08/18 [Rx] Polyethylene Glycol 3350 [MiraLAX] 17 gm PO DAILY PRN powd.pack 06/16/18 [Rx] Allergies/Adverse Reactions: Allergy/AdvReac Type Severity Reaction Status Date / Time Penicillins Allergy Hives Verified 06/04/18 11:37 levofloxacin [From Levaquin] AdvReac Tendonitis Verified 06/04/18 11:37 Certification: Further, I certify that my clinical findings support that this patient is homebound (i.e. absences from home require considerable and taxing effort and are for medical reasons or bahai services or infrequently or short duration when for other reasons) because: Homebound Reason: Patient requires assistance of a person or device to safely leave home, Post-surgery restriction and or conditions limit ability to leave home Attestation: My signature below is to certify that this patient is under my care and that I, or nurse practitioner, or a physician's assistant women's tennis coach working with me, has a [id number]-eriy encounter with this patient.
== END 2018-06-16 15:00 | disposition home health service (06) | DRG 561 ==
LOC: INPGRE 18:30

== ENCOUNTER 2019-04-16 13:32 | Inpatient (IN) ==
[2019-04-16] MEDS ORDERED: Ondansetron ODT 4 MG TAB.RAPDIS SL PRN (18:47)
[2019-04-16] MEDS ORDERED: Mag Hydrox/Al Hydrox/Simeth 30 ML UDC PO PRN (18:47)
[2019-04-16] MEDS ORDERED: Sennosides/Docusate Sodium TABLET PO PRN (18:53)
[2019-04-16] MEDS: Furosemide 20 MG TABLET PO SCH (21:19)
[2019-04-16] MEDS: diazePAM 2 MG TABLET PO SCH (21:20)
[2019-04-16] MEDS: *HR* OxyCODONE Immed Rel 5 MG TABLET PO PRN (21:20)
[2019-04-17] MEDS: *HR* OxyCODONE Immed Rel 5 MG TABLET PO PRN ×3 (05:28→20:24)
[2019-04-17 05:44] LABS: Basophils % 0.5 %; Eosinophils # 0.3 K/mcL (0.0-0.6); Hematocrit 32.3 % (35.3-44.9); Hemoglobin 10.6 g/dL (11.5-15.4); Immature Granulocytes % 1.4 % (0-4); Lymphocytes # 2.1 K/mcL (0.6-4.6); Lymphocytes % 26.3 %; Mean Corpuscular HGB Conc 32.8 g/dL (31.6-35.5); Mean Corpuscular Hemoglobin 32.7 pg (28.0-33.3); Mean Corpuscular Volume 99.7 fL (83.0-100.0); Mean Platelet Volume 9.5 fL (9.4-12.4); Monocytes % 12.7 %; Neutrophils # 4.4 K/mcL (1.6-8.9); Platelet Count 236 K/mcL (140-400); Red Blood Count 3.24 M/mcL (3.82-4.97); Red Cell Distribution Width 16.1 % (11.5-14.5); Segmented Neutrophils % 55.1 %
[2019-04-17 06:01] LABS: Alanine Aminotransferase 15 Units/L (7-52); Albumin 2.9 g/dL (3.5-5.7); Albumin/Globulin Ratio 1.6 (1.1-2.2); Alkaline Phosphatase 52 Units/L (34-104); Aspartate Amino Transferase 22 Units/L (13-39); BUN/Creatinine Ratio 11 (6-26); Bilirubin,Total 0.8 mg/dL (0.3-1.0); Blood Urea Nitrogen 10 mg/dL (8-23); Calcium 7.9 mg/dL (8.6-10.3); Carbon Dioxide 26 mEq/L (23-29); Chloride 103 mEq/L (98-107); Globulin 1.8 g/dL (2.4-3.5); Glucose 101 mg/dL (70-105); Magnesium 1.8 mg/dL (1.6-2.6); Osmolality,Calculated 275 (280-300); Potassium 3.7 mEq/L (3.5-5.1); Sodium 133 mEq/L (136-145); Total Protein 4.7 g/dL (6.4-8.9); eGFR For African Americans > 60 (> 60); eGFR For Non-African Americans > 60 (> 60)
[2019-04-17] MEDS: Lactobacillus 1 EACH CAP.SPRINK PO SCH (08:47)
[2019-04-17] MEDS: diazePAM 2 MG TABLET PO SCH ×2 (08:47→20:23)
[2019-04-17] MEDS: Loratadine 10 MG TABLET PO SCH (08:47)
[2019-04-17] MEDS: Acetaminophen 325 MG TABLET PO PRN ×2 (08:47→18:31)
[2019-04-17] MEDS: Aspirin Enteric Coated 81 MG Tablet PO SCH (08:47)
--- NOTE | 2019-04-17 09:39 | Internal Med History&Physical ---
Date of Encounter: 04/17/19 Time of Encounter: 09:39 Assessment and Plan (1) Left humeral fracture Current visit: No Status: Acute Patient is having some edema postop. She will have supportive care and elevate when possible. Will follow. Qualifiers: Encounter type: initial encounter Humerus Location: shaft Fracture type: closed Fracture morphology: oblique Fracture alignment: displaced Qualified Code(s): S42.332A - Displaced oblique fracture of shaft of humerus, left arm, initial encounter for closed fracture (2) Hypertension Current visit: No Status: Chronic Controlled. Qualifiers: Hypertension type: essential hypertension Qualified Code(s): I10 - Ess ential (primary) hypertension (3) Hyperlipidemia Current visit: No Status: Chronic We will continue current regimen. Qualifiers: Hyperlipidemia type: unspecified Qualified Code(s): E78.5 - Hyperlipidemia, unspecified (4) GERD (gastroesophageal reflux disease) Current visit: No Status: Chronic We will continue current regimen. Qualifiers: Esophagitis presence: esophagitis presence not specified Qualified Code(s): K21.9 - Gastro-esophageal reflux disease without esophagitis (5) Anxiety and depression Current visit: Yes Status: Acute We will continue current medications. Clinically, stable. Internal Medicine - H&P: HPI Chief complaint: Left arm pain. Admitted From: Hospital to Hospital Transfer Plans for Post Hospital Care: Home History of present illness: Ms. Lizarraga is a 83 year old female who was in her usual state of health until 04/11/2012, simply tripping without loss of consciousness, and hurt her left arm. She was seen and the local ED but had pain and was sent home with a splint. She was seen 2 days later and was again sent home. She was seen by Dr. fam who also changed her splint and then arranged outpatient follow-up. Carlene stanley, on April 13, she passed out because the pain was so bad in her left upper extremity. She was admitted and ORIF of the proximal humerus was performed. She is now transferred for therapies to include physical and occupational recreational therapy. She will be treated with therapies and hopefully strengthened and hopes to return to activities of daily living which will allow her to return home. Of note, before her surgery, she had an echocardiogram which showed an ejection fraction of 65% and no gross abnormalities. Past Med Surg Social Fam HX - Past Medical History Medical history: arthritis, GERD, hyperlipidemia, hypertension, other Additional medical history: Hypothyroidism Psychiatric history: anxiety, depression - Past Surgical History Surgical History: herniorrhaphy, hysterectomy, other Additional surgical history: back surgeries x3. cataract surgery (bilat) 11/2018. R broken hip repair. Left humerus ORIF. - Social History Smoking Status: Never smoker Smokeless Tobacco Status: No Alcohol use: none Drug use: none - Family History Mother Family Member Ethnicity: Non- Living Status: Hx Family Cancer: Yes (Pancreatic) Father Family Member Ethnicity: Non- Living Status: Hx Family Cardiac Disorders: Yes (CA x2, CVAs) Hx Family Neurologic Disorders: Yes (CVAs) Brother Family Member Ethnicity: Non- Living Status: Hx Family Respiratory Disorders: Yes (Pulmonary fibrosis) Internal Medicine - H&P: Meds Amitriptyline [Elavil] 50 mg PO HS 07/09/16 [History] Furosemide [Lasix] 20 mg PO Q48H 07/09/16 [History] Omeprazole [PriLOSEC] 20 mg PO DAILY 07/09/16 [History] Pravastatin Sodium [Pravachol] 40 mg PO QPM 07/09/16 [History] Zonisamide [Zonegran] 100 mg PO HS 07/09/16 [History] Aspirin Enteric Coated [Aspirin EC] 162 mg PO DAILY 06/04/18 [History] Calcium Carbonate [Calcium] 500 mg PO DAILY 06/04/18 [History] Lactobacillus Acidophilus/Fos [Acidophilus Probiotic Tablet] 1 each PO DAILY 06/04/18 [History] Lisinopril [Zestril] 10 mg PO DAILY 06/04/18 [History] Multivit-Minerals/Folic/Ginkgo [One Daily For Women 50+ Adv Tb] 1 each PO DAILY 06/04/18 [History] diazePAM [Valium] 2 mg PO BID 3 Days #6 tablet 06/08/18 [Rx] Polyethylene Glycol 3350 [MiraLAX] 17 gm PO DAILY PRN powd.pack 06/16/18 [Rx] Alendronate Sodium/Vitamin D3 [Fosamax Plus D 70 mg-2,800 Iu] 70 mg PO TU 04/13/19 [History] Loratadine [Claritin] 10 mg PO DAILY 04/13/19 [History] HYDROcodone/Acet 5/325 mg [[place] 5-325 mg] 1 tab PO Q6H PRN 4 Days #7 tablet 04/15/19 [Rx] OxyCODONE Immed Rel [Roxicodone 5 MG] 10 mg PO Q6H PRN 4 Days #7 tablet 04/15/19 [Rx] Sennosides/Docusate Sodium [Senna Plus] 2 each PO BID PRN 15 Days #30 tablet 04/15/19 [Rx] Allergy/AdvReac Type Severity Reaction Status Date / Time Penicillins Allergy Hives, Verified 04/14/19 19:37 Swelling levofloxacin [From Levaquin] AdvReac Tendonitis Verified 04/14/19 19:37 All Systems PM: Patient has no complaint of chest discomfort, dyspnea, orthopnea, breathing problems, palpitations, nausea or vomiting, constipation or diarrhea, other changes in bowel habits, heartburn, difficulty with urination, kidney problems or kidney stones, fevers chills or sweats, rash or itching, seizures, headache or lightheadedness, heat or cold intolerance, blood problems or anemia, or other new complaints, except as mentioned above. Review of systems is otherwise negative. - Constitutional Vitals: Temp Pulse Resp BP Pulse Ox 98.2 F 76 14 109/68 97 04/17/19 07:01 04/17/19 07:01 04/17/19 07:01 04/17/19 07:01 04/17/19 07:01 Exam: Examination: (Except as mentioned above): General: In no apparent distress, alert and oriented 3. Head: Atraumatic and normocephalic. Eyes: Extraocular muscles are intact, pupils equal round and reactive to light and accommodation. Sclerae anicteric. Status post bilateral IOL. Ears: External ears are normal to inspection and hearing is grossly normal. Nose: Patent without lesion noted. Mouth: No intraoral lesions seen. Dentition is remarkable for missing a few upper teeth. Neck: Supple with trachea midline. There is no thyromegaly or adenopathy and carotids are 2+ without bruit heard. Respiratory: No use of accessory muscles. Lungs are clear throughout. Normal airflow. Cardiovascular: Regular rate and rhythm without murmur appreciated. Abdomen: Bowel sounds are normal. No hepatosplenomegaly masses or tenderness. Obese and therefore difficult to palpate deeply. Patient is examined upright in chair and this also limits exam. Extremities: No cyanosis clubbing or edema. She is in a left upper extremity sling. Wound is well opposed and without drainage of significance. She has multiple ezra in place. There is surrounding ecchymosis and minimal erythema but no suggestion of cellulitis. Neurological: A and O 3. Cranial nerves II through XII are intact. No focal deficits and no abnormal movements or postures. Skin: Warm and non-diaphoretic with no lesions noted. Breasts, pelvic and rectal: Not examined. Internal Med - H&P Results - Labs CBC & Chem 7: 04/17/19 05:35 04/17/19 05:35 Labs: Short CBC 04/17/19 Range/Units 05:35 WBC 8.0 (4.3-11.1) K/mcL Hgb 10.6 L (11.5-15.4) g/dL Hct 32.3 L (35.3-44.9) % Plt Count 236 (140-400) K/mcL Neutrophils # 4.4 (1.6-8.9) K/mcL BMP 04/17/19 05:35 Sodium 133 L Potassium 3.7 Chloride 103 Carbon Dioxide 26 BUN 10 Creatinine 0.87 Glucose 101 Calcium 7.9 L Liver Function 04/17/19 Range/Units 05:35 Total Bilirubin 0.8 (0.3-1.0) mg/dL AST 22 (13-39) Units/L ALT 15 (7-52) Units/L Alkaline Phosphatase 52 (34-104) Units/L Albumin 2.9 L (3.5-5.7) g/dL
[2019-04-18] MEDS: *HR* OxyCODONE Immed Rel 5 MG TABLET PO PRN ×3 (06:20→21:42)
[2019-04-18] MEDS: *HR* Enoxaparin 40 MG/0.4 ML SYRINGE SQ SCH (06:20)
[2019-04-18] MEDS: Loratadine 10 MG TABLET PO SCH (08:46)
[2019-04-18] MEDS: Aspirin Enteric Coated 81 MG Tablet PO SCH (08:46)
[2019-04-18] MEDS: diazePAM 2 MG TABLET PO SCH ×2 (08:46→21:42)
[2019-04-18] MEDS: Lactobacillus 1 EACH CAP.SPRINK PO SCH (08:46)
[2019-04-18] MEDS: Acetaminophen 325 MG TABLET PO PRN ×2 (08:46→18:10)
--- NOTE | 2019-04-18 13:19 | Internal Med Progress Note ---
Date of Encounter: 04/18/19 Time of Encounter: 13:17 - Assessment and plan (1) Left humeral fracture Current Visit: No Status: Acute Assessment and plan: Patient to continue therapies. Seems stable for postop period. Qualifiers: Encounter type: initial encounter Humerus Location: shaft Fracture type: closed Fracture morphology: oblique Fracture alignment: displaced Qualifie d Code(s): S42.332A - Displaced oblique fracture of shaft of humerus, left arm, initial encounter for closed fracture (2) Hypertension Current Visit: No Status: Chronic Assessment and plan: Adequate control. Qualifiers: Hypertension type: essential hypertension Qualified Code(s): I10 - Essential (primary) hypertension (3) Hyperlipidemia Current Visit: No Status: Chronic Assessment and plan: We will continue current regimen. Qualifiers: Hyperlipidemia type: unspecified Qualified Code(s): E78.5 - Hyperlipidemia, unspecified (4) GERD (gastroesophageal reflux disease) Current Visit: No Status: Chronic Assessment and plan: No current complaints. Qualifiers: Esophagitis presence: esophagitis presence not specified Qualified Code(s): K21.9 - Gastro-esophageal reflux disease without esophagitis (5) Anxiety and depression Current Visit: Yes Status: Acute Assessment and plan: Clinically stable. - Subjective Interval history: Patient is without complaint. She admits to mild left arm and shoulder pain. She has less swelling. She notes as does nursing that she had some drainage w hen it was changed. No other complaints. Patient has no complaint of chest discomfort, dyspnea, orthopnea, palpitations, nausea or vomiting, constipation or diarrhea, other changes in bowel habits, difficulty with urination, rash or itching, or other new complaints, except as mentioned above. Review of systems is otherwise negative. I discussed management of patient's care with nursing staff. - Constitutional Vitals: Temp Pulse Resp BP Pulse Ox 98.8 F 79 15 111/63 94 04/18/19 07:55 04/18/19 07:55 04/18/19 07:55 04/18/19 07:55 04/18/19 07:55 Exam: Examination: (Except as mentioned above): General: In no apparent distress. Alert and oriented 3. Nondiaphoretic. Head: Atraumatic and normocephalic. Respiratory: No use of accessory muscles. Lungs are clear throughout. Normal airflow. Cardiovascular: Regular rate and rhythm without murmur appreciated. Abdomen: Bowel sounds are normal. No hepatosplenomegaly mass or tenderness appreciated. Obese and therefore difficult to palpate deeply. Extremities: No cyanosis clubbing or edema. There is some drainage at her distal incision site which is chicken soup in character. Skin: Warm and non-diaphoretic with no new lesions noted. Internal Medicine: Result - Labs CBC & Chem 7: 04/17/19 05:35 04/17/19 05:35 Consult Discharge Plan - Plan Referrals: César Truong DO [Primary Care Provider] -
[2019-04-18] MEDS: Furosemide 20 MG TABLET PO SCH (18:10)
[2019-04-19] MEDS: *HR* Enoxaparin 40 MG/0.4 ML SYRINGE SQ SCH (06:39)
[2019-04-19] MEDS: Aspirin Enteric Coated 81 MG Tablet PO SCH (09:07)
[2019-04-19] MEDS: Lactobacillus 1 EACH CAP.SPRINK PO SCH (09:07)
[2019-04-19] MEDS: Loratadine 10 MG TABLET PO SCH (09:07)
[2019-04-19] MEDS: diazePAM 2 MG TABLET PO SCH ×2 (09:07→21:28)
[2019-04-19] MEDS: *HR* OxyCODONE Immed Rel 5 MG TABLET PO PRN ×2 (09:29→21:28)
--- NOTE | 2019-04-19 09:35 | Internal Med Progress Note ---
Date of Encounter: 04/19/19 Time of Encounter: 09:33 - Assessment and plan (1) Humeral shaft fracture Current Visit: Yes Status: Acute Assessment and plan: No acute issues. Patient's dressing to left upper arm shows a moderate amount of serous type drainage. CV checks normal. Arm remains in immobilizer sling. Patient states that her pain has been tolerable with current medications. Patient states that therapy has been going well. We will continue with current plan of care Qualifiers: Encounter type: subsequent encounter Fracture type: closed Fracture morphology: unspecified fracture morphology Laterality: left Fracture healing: with routine healing Qualified Code(s): S42.302D - Unspecified fracture of shaft of humerus, left arm, subsequent encounter for fracture with routine healing (2) Hypertension Current Visit: No Status: Chronic Assessment and plan: No acute issues. Vital signs stable. We will continue with current medications. Qualifiers: Hypertension type: essential hypertension Qualified Code(s): I10 - Essential (primary) hypertension (3) GERD (gastroesophageal reflux disease) Current Visit: Yes Status: Chronic Assessment and plan: Patient is without complaints. No current issues. We will continue with current medications Qualifiers: Esophagitis presence: esophagitis presence not specified Qualified Code(s): K21.9 - Gastro-esophageal reflux disease without esophagitis (4) Anxiety and depression Current Visit: Yes Status: Chronic Assessment and plan: No acute issues. No behavior issues reported per nursing. Patient interacting well with staff. We will continue with current medications. - Time Spent With Patient less than 15 minutes - Subjective Interval history: Patient appears relaxed and currently states that she has moderate pain to her left upper arm fracture site. Patient states that her pain medications have been effective and that she was waiting to take her medication this morning until just prior to therapy. Denies any dyspnea - Constitutional Vitals: Temp Pulse Resp BP Pulse Ox 98.3 F 76 16 113/66 90 04/19/19 07:00 04/19/19 07:00 04/19/19 07:00 04/19/19 07:00 04/19/19 07:00 General appearance: Present: A&O X 3, pleasant - Head Head exam: Present: atraumatic, normocephalic - Eye Eye exam: Present: PERRL, conjuntiva pink, sclera anicteric Pupils: Present: PERRL - Neck Neck exam general surgery: Present: supple, trachea midline. Absent: lymphadenopathy - Respiratory Respiratory exam: Present: CTAB. Absent: accessory muscle use, rales, rhonchi, wheezes - Cardiovascular Cardiovascular exam: Present: RRR, +S1, +S2. Absent: diastolic murmur, gallop, rubs, systolic murmur - GI/Abdominal GI/Abdominal exam: Present: normal bowel sounds, soft, no peritoneal signs. Abs ent: distended, tenderness - Extremities Exam Extremities exam: Present: warm, radial pulses palpable and symmetrical. Absent: calf tenderness, cyanotic, pedal edema Additional comments: Left arm remains in a immobilizing sling. Patient with left upper arm dressing with moderate saturation of serous type drainage to the proximal portion. Moderate amount of ecchymosis noted to left shoulder and arm. Distal CV checks normal. - Neurological Exam Neurological exam: Present: CN II-XII intact, oriented X3, no focal deficits. Absent: pronater drift, facial droop, speech deficit - Skin Skin exam: Present: dry, intact Internal Medicine: Result - Labs CBC & Chem 7: 04/17/19 05:35 04/17/19 05:35 Consult Discharge Plan - Plan Referrals: César Truong DO [Primary Care Provider] -
[2019-04-19] MEDS: Acetaminophen 325 MG TABLET PO PRN (14:22)
[2019-04-20] MEDS: *HR* Enoxaparin 40 MG/0.4 ML SYRINGE SQ SCH (04:24)
[2019-04-20] MEDS: Loratadine 10 MG TABLET PO SCH (08:00)
[2019-04-20] MEDS: diazePAM 2 MG TABLET PO SCH ×2 (08:00→22:00)
[2019-04-20] MEDS: Aspirin Enteric Coated 81 MG Tablet PO SCH (08:00)
[2019-04-20] MEDS: Lactobacillus 1 EACH CAP.SPRINK PO SCH (08:01)
[2019-04-20] MEDS: *HR* OxyCODONE Immed Rel 5 MG TABLET PO PRN ×2 (08:01→18:49)
--- NOTE | 2019-04-20 10:29 | Internal Med Progress Note ---
Date of Encounter: 04/20/19 Time of Encounter: 10:27 - Assessment and plan (1) Humeral shaft fracture Current Visit: Yes Status: Acute Assessment and plan: Continue PT and OT. Continue nonweightbearing and no range of motion to left upper extremities. Continue sling. Follow up with ortho on 04/21/2019 Qualifiers: Encounter type: subsequent encounter Fracture type: closed Fracture morphology: unspecified fracture morphology Laterality: left Fracture healing: with routine healing Qualified Code(s): S42.302D - Unspecified fracture of shaft of humerus, left arm, subsequent encounter for fracture with routine healing (2) Hypertension Current Visit: Yes Status: Chronic Assessment and plan: controlled with current meds. monitor BP. Qualifiers: Hypertension type: essential hypertension Qualified Code(s): I10 - Essential (primary) hypertension (3) GERD (gastroesophageal reflux disease) Current Visit: Yes Status: Chronic Assessment and plan: controlled with current meds Qualifiers: Esophagitis presence: esophagitis presence not specified Qualified Code(s): K21.9 - Gastro-esophageal reflux disease without esophagitis (4) Anxiety and depression Current Visit: Yes Status: Chronic Assessment and plan: stable with current meds. - Time Spent With Patient less than 15 minutes - Subjective Interval history: Dissipating well with therapy. States bowels have not moved well since admiss ion. Luh lacks ordered. Denies abdominal pain, states left arm pain is controlled with current medication. Denies shortness of breath, chest pain, fever, chills, nausea vomiting or diarrhea. Remains nonweightbearing and no range of motion to left upper extremity. Has follow up with ortho on . - Constitutional Vitals: Temp Pulse Resp BP Pulse Ox 98.9 F 79 16 112/68 94 04/20/19 07:00 04/20/19 07:00 04/20/19 07:00 04/20/19 07:00 04/20/19 07:00 General appearance: Present: A&O X 3, pleasant, no acute distress, answers questions appropriately - Head Head exam: Present: atraumatic, normocephalic - Eye Eye exam: Present: PERRL, conjuntiva pink, sclera anicteric Pupils: Present: PERRL - Neck Neck exam general surgery: Present: supple, trachea midline. Absent: lymphadenopathy - Respiratory Respiratory exam: Present: CTAB. Absent: accessory muscle use, rales, rhonchi, wheezes - Cardiovascular Cardiovascular exam: Present: RRR, +S1, +S2. Absent: diastolic murmur, gallop, rubs, systolic murmur - GI/Abdominal GI/Abdominal exam: Present: normal bowel sounds, soft, no peritoneal signs. Absent: distended, tenderness - Extremities Exam Extremities exam: Present: warm, radial pulses palpable and symmetrical. Absent: calf tenderness, cyanotic, pedal edema - Incison Comments: Left upper extremity incision, drsg dry and intact. arm in sling. - Neurological Exam Neurological exam: Present: CN II-XII intact, oriented X3, no focal deficits. Absent: pronater drift, facial droop, speech deficit - Skin Skin exam: Present: dry, intact Internal Medicine: Result - Labs CBC & Chem 7: 04/17/19 05:35 04/17/19 05:35 - Impressions Impressions Knee X-Ray 04/20/19 08:55 IMPRESSION: Mild tricompartmental osteoarthritis. No joint effusion. No acute fracture or dislocation. D/ / 04/20/2019 09:33:06 Faustino Martini MD / lui Interpreting Provider: Faustino Martini MD Consult Discharge Plan - Plan Referrals: César Truong DO [Primary Care Provider] -
[2019-04-20] MEDS: Furosemide 20 MG TABLET PO SCH (17:11)
[2019-04-21] MEDS: *HR* OxyCODONE Immed Rel 5 MG TABLET PO PRN ×2 (05:22→14:05)
[2019-04-21] MEDS: *HR* Enoxaparin 40 MG/0.4 ML SYRINGE SQ SCH (05:22)
--- NOTE | 2019-04-21 08:15 | Internal Med Progress Note ---
Date of Encounter: 04/21/19 Time of Encounter: 08:14 - Assessment and plan (1) Left humeral fracture Current Visit: No Status: Acute Assessment and plan: She is to follow-up with her orthopedic surgeon, this afternoon. Qualifiers: Encounter type: initial encounter Humerus Location: shaft Fracture type: closed Fracture morphology: oblique Fracture alignment: displaced Qualif ied Code(s): S42.332A - Displaced oblique fracture of shaft of humerus, left arm, initial encounter for closed fracture (2) Hypertension Current Visit: Yes Status: Chronic Assessment and plan: Marginal control. Qualifiers: Hypertension type: essential hypertension Qualified Code(s): I10 - Essential (primary) hypertension (3) Hyperlipidemia Current Visit: No Status: Chronic Assessment and plan: We will continue current regimen. Qualifiers: Hyperlipidemia type: unspecified Qualified Code(s): E78.5 - Hyperlipidemia, unspecified (4) GERD (gastroesophageal reflux disease) Current Visit: Yes Status: Chronic Assessment and plan: No current complaints. Qualifiers: Esophagitis presence: esophagitis presence not specified Qualified Code(s): K21.9 - Gastro-esophageal reflux disease without esophagitis (5) Anxiety and depression Current Visit: Yes Status: Chronic Assessment and plan: Seems well controlled. - Subjective Interval history: Patient is without complaint. She is progressing in therapy and does not feel that she is yet ready to go home but discharge is being planned for 2 days from now, according to her insurance company. Bowels are functioning well. She denies bladder problems. Patient has no complaint of chest discomfort, dyspnea, orthopnea, palpitations, nausea or vomiting, constipation or diarrhea, other changes in bowel habits, difficulty with urination, rash or itching, or other new complaints, except as mentioned above. Review of systems is otherwise negative. I discussed management of patient's care with nursing staff. - Constitutional Vitals: Temp Pulse Resp BP Pulse Ox 98.7 F 79 14 109/63 96 04/20/19 19:22 04/20/19 19:22 04/20/19 19:22 04/20/19 19:22 04/20/19 19:22 Exam: General: In no apparent distress. Alert and oriented 3. Nondiaphoretic. Head: Atraumatic and normocephalic. Respiratory: No use of accessory muscles. Lungs are clear throughout. Normal airflow. Cardiovascular: Regular rate and rhythm without murmur appreciated. Abdomen: Bowel sounds are normal. No hepatosplenomegaly mass or tenderness appreciated. Obese and therefore difficult to palpate deeply. Extremities: No cyanosis clubbing or edema. Skin: Warm and non-diaphoretic with no new lesions noted. Internal Medicine: Result - Labs CBC & Chem 7: 04/17/19 05:35 04/17/19 05:35 - Impressions Impressions Knee X-Ray 04/20/19 08:55 IMPRESSION: Mild tricompartmental osteoarthritis. No joint effusion. No acute fracture or dislocation. D/ / 04/20/2019 09:33:06 Faustino Martini MD / [email or web address] Interpreting Provider: Faustino Martini MD Consult Discharge Plan - Plan Referrals: César Truong DO [Primary Care Provider] -
[2019-04-21] MEDS: Aspirin Enteric Coated 81 MG Tablet PO SCH (09:15)
[2019-04-21] MEDS: diazePAM 2 MG TABLET PO SCH ×2 (09:15→22:12)
[2019-04-21] MEDS: Lactobacillus 1 EACH CAP.SPRINK PO SCH (09:15)
[2019-04-21] MEDS: Loratadine 10 MG TABLET PO SCH (09:15)
[2019-04-21] MEDS: Furosemide 20 MG TABLET PO SCH (09:15)
[2019-04-21] MEDS: Acetaminophen 325 MG TABLET PO PRN ×2 (09:15→22:31)
[2019-04-22] MEDS: *HR* Enoxaparin 40 MG/0.4 ML SYRINGE SQ SCH (05:57)
[2019-04-22] MEDS: Lactobacillus 1 EACH CAP.SPRINK PO SCH (07:56)
[2019-04-22] MEDS: diazePAM 2 MG TABLET PO SCH ×2 (07:56→21:30)
[2019-04-22] MEDS: Aspirin Enteric Coated 81 MG Tablet PO SCH (07:56)
[2019-04-22] MEDS: Loratadine 10 MG TABLET PO SCH (07:56)
[2019-04-22] MEDS: Acetaminophen 325 MG TABLET PO PRN ×3 (07:58→21:29)
--- NOTE | 2019-04-22 10:09 | Internal Med Progress Note ---
Date of Encounter: 04/22/19 Time of Encounter: 10:07 - Assessment and plan (1) Humeral shaft fracture Current Visit: Yes Status: Acute Assessment and plan: No acute issues. Patient's dressing to left upper arm shows a moderate amount of serous type drainage. CV checks normal. Arm remains in immobilizer sling. Patient states that her pain has been tolerable with current medications. Patient states that therapy has been going well. We will continue with current plan of care Qualifiers: Encounter type: subsequent encounter Fracture type: closed Fracture morphology: unspecified fracture morphology Laterality: left Fracture healing: with routine healing Qualified Code(s): S42.302D - Unspecified fracture of shaft of humerus, left arm, subsequent encounter for fracture with routine healing (2) Hypertension Current Visit: Yes Status: Chronic Assessment and plan: No acute issues. Vital signs stable. We will continue with current medications. Qualifiers: Hypertension type: essential hypertension Qualified Code(s): I10 - Essential (primary) hypertension (3) GERD (gastroesophageal reflux disease) Current Visit: Yes Status: Chronic Assessment and plan: Patient is without complaints. No current issues. We will continue with current medications Qualifiers: Esophagitis presence: esophagitis presence not specified Qualified Code(s): K21.9 - Gastro-esophageal reflux disease without esophagitis (4) Pedal edema Current Visit: Yes Status: Acute Assessment and plan: Patient noted to have +1 pedal edema bilateral feet and ankles, which she states is acute. Continue with daily weights. Patient showing no other signs of fluid retention at this time. We will review patient's current medications. - Time Spent With Patient less than 15 minutes - Subjective Interval history: Patient appears relaxed and currently states that she has moderate pain to her left upper arm fracture site. Patient states that her pain medications have been effective. Denies any dyspnea. She does complain of increased edema to bilateral feet and ankles which she states has started approximately 2 days prior. Patient states that she has not had an issue with chronic edema before - Constitutional Vitals: Temp Pulse Resp BP Pulse Ox 97.6 F 74 16 124/64 92 04/22/19 07:00 04/22/19 07:00 04/22/19 07:00 04/22/19 07:00 04/22/19 07:00 General appearance: Present: A&O X 3, pleasant, no acute distress, answers questions appropriately - Head Head exam: Present: atraumatic, normocephalic - Eye Eye exam: Present: PERRL, conjuntiva pink, sclera anicteric Pupils: Present: PERRL - Neck Neck exam general surgery: Present: supple, trachea midline. Absent: lymphaden opathy - Respiratory Respiratory exam: Present: decreased breath sounds, CTAB. Absent: accessory muscle use, rales, rhonchi, wheezes - Cardiovascular Cardiovascular exam: Present: RRR, +S1, +S2. Absent: diastolic murmur, gallop, rubs, systolic murmur - GI/Abdominal GI/Abdominal exam: Present: normal bowel sounds, soft, no peritoneal signs. Absent: distended, tenderness - Extremities Exam Extremities exam: Present: normal capillary refill, normal inspection, pedal edema, warm, radial pulses palpable and symmetrical. Absent: calf tenderness, cyanotic Additional comments: Patient with +1 pitting edema bilateral feet and ankles. Left arm remains in an immobilizing sling. Surgical dressing to upper arm appears dry and intact with moderate amount of ecchymosis noted surrounding surgical area. Distal CV checks normal - Neurological Exam Neurological exam: Present: CN II-XII intact, oriented X3, no focal deficits. Absent: pronater drift, facial droop, speech deficit - Skin Skin exam: Present: dry, intact Internal Medicine: Result - Labs CBC & Chem 7: 04/17/19 05:35 04/17/19 05:35 Consult Discharge Plan - Plan Referrals: César Truong DO [Primary Care Provider] -
[2019-04-23] MEDS: *HR* OxyCODONE Immed Rel 5 MG TABLET PO PRN ×2 (03:21→09:06)
[2019-04-23] MEDS: *HR* Enoxaparin 40 MG/0.4 ML SYRINGE SQ SCH (05:47)
[2019-04-23 08:17] VITALS: BP 126/70
[2019-04-23] MEDS: Aspirin Enteric Coated 81 MG Tablet PO SCH (09:06)
[2019-04-23] MEDS: diazePAM 2 MG TABLET PO SCH (09:06)
[2019-04-23] MEDS: Lactobacillus 1 EACH CAP.SPRINK PO SCH (09:06)
[2019-04-23] MEDS: Furosemide 20 MG TABLET PO SCH (09:07)
[2019-04-23] MEDS: Loratadine 10 MG TABLET PO SCH (09:07)
--- NOTE | 2019-04-23 10:31 | Physician Discharge Referral ---
Home Health/Hosp Referral Info Transfer to: Home Health Provider in Charge Post Discharge: PCP - Diagnosis (1) Humeral shaft fracture Priority: Primary Status: Acute (2) Hypertension Priority: Secondary Status: Chronic (3) GERD (gastroesophageal reflux disease) Priority: Secondary Status: Chronic (4) Anxiety and depression Priority: Secondary Status: Chronic - Respiratory Orders Smoking Cessation: Smoking cessation has been advised. For more information, call the [place] Tobacco Quit Line at 8-969-ZMJP-NOW. - Diet/Nutrition Diet/Nutrition Orders: Regular - Activity Activity Orders: Ambulate - Services Needed Following services are medically necessary services: Nursing, Home Health Aide, Physical Therapy, Occupational Therapy - Transfer Medications Home Medications: Amitriptyline [Elavil] 50 mg PO HS 07/09/16 [History] Furosemide [Lasix] 20 mg PO Q48H 07/09/16 [History] Omeprazole [PriLOSEC] 20 mg PO DAILY 07/09/16 [History] Pravastatin Sodium [Pravachol] 40 mg PO QPM 07/09/16 [History] Zonisamide [Zonegran] 100 mg PO HS 07/09/16 [History] Aspirin Enteric Coated [Aspirin EC] 162 mg PO DAILY 06/04/18 [History] Calcium Carbonate [Calcium] 500 mg PO DAILY 06/04/18 [History] Lactobacillus Acidophilus/Fos [Acidophilus Probiotic Tablet] 1 each PO DAILY 06/04/18 [History] Lisinopril [Zestril] 10 mg PO DAILY 06/04/18 [History] Multivit-Minerals/Folic/Ginkgo [One Daily For Women 50+ Adv Tb] 1 each PO DAILY 06/04/18 [History] diazePAM [Valium] 2 mg PO BID 3 Days #6 tablet 06/08/18 [Rx] Polyethylene Glycol 3350 [MiraLAX] 17 gm PO DAILY PRN powd.pack 06/16/18 [Rx] Alendronate Sodium/Vitamin D3 [Fosamax Plus D 70 mg-2,800 Iu] 70 mg PO TU 04/13/19 [History] Loratadine [Claritin] 10 mg PO DAILY 04/13/19 [History] HYDROcodone/Acet 5/325 mg [[place] 5-325 mg] 1 tab PO Q6H PRN 4 Days #7 tablet 04/15/19 [Rx] OxyCODONE Immed Rel [Roxicodone 5 MG] 10 mg PO Q6H PRN 4 Days #7 tablet 04/15/19 [Rx] Sennosides/Docusate Sodium [Senna Plus] 2 each PO BID PRN 15 Days #30 tablet 04/15/19 [Rx] Allergies/Adverse Reactions: Allergy/AdvReac Type Severity Reaction Status Date / Time Penicillins Allergy Hives, Verified 04/14/19 19:37 Swelling levofloxacin [From Levaquin] AdvReac Tendonitis Verified 04/14/19 19:37 Certification: Further, I certify that my clinical findings support that this patient is homebound (i.e. absences from home require considerable and taxing effort and are for medical reasons or jain services or infrequently or short duration when for other reasons) because: Homebound Reason: Patient requires assistance of a person or device to safely leave home, Post-surgery restriction and or conditions limit ability to leave home, Leaving home requires considerable and taxing effort due to condition Attestation: My signature below is to certify that this patient is under my care and that I, or nurse practitioner, or a physician's assistant finance director working with me, has a [id number] encounter with this patient.
--- NOTE | 2019-04-23 10:42 | Discharge Summary ---
Date of Encounter: 04/23/19 Time of Encounter: 10:40 - Discharge Diagnosis (1) Humeral shaft fracture Priority: Primary Status: Acute Comments: Discharging to home with home health PT, OT, nursing and aid. Pain controlled with current medication. Follow up with ortho as scheduled. Qualifiers: Encounter type: subsequent encounter Fracture type: closed Fracture morphology: unspecified fracture morphology Laterality: left Fracture healing: with routine healing Qualified Code(s): S42.302D - Unspecified fracture of shaft of humerus, left arm, subsequent encounter for fracture with routine healing (2) Hypertension Priority: Secondary Status: Chronic Comments: Controlled with current medication. Follow up with PCP. Qualifiers: Hypertension type: essential hypertension Qualified Code(s): I10 - Essential (primary) hypertension (3) GERD (gastroesophageal reflux disease) Priority: Secondary Status: Chronic Comments: Controlled with current medication. Follow up with PCP. Qualifiers: Esophagitis presence: esophagitis presence not specified Qualified Code(s): K21.9 - Gastro-esophageal reflux disease without esophagitis (4) Anxiety and depression Priority: Secondary Status: Chronic Comments: Controlled with current medication. Follow up with PCP. Hospital course: Ms. Lizarraga is a 83 year old female discharging to home from inpatient rehab unit. On , patient had a fall and injured her left arm. This resulted in a left ORIF to the proximal humerus. Patient states pain controlled with current medication. Follow up with ortho as scheduled. Follow up with PCP within one to 2 weeks. Discharging to home with home health PT, OT, nursing and aid. Discharge discussed with: patient, nurse, social work - Time Spent with Patient Total time spent providing and/or coordinating discharge services: Time spent: Less than 30 minutes - Discharge Medications Prescriptions: No Action Aspirin Enteric Coated [Aspirin EC] 162 mg PO DAILY Calcium Carbonate [Calcium] 500 mg PO DAILY Lactobacillus Acidophilus/Fos [Acidophilus Probiotic Tablet] 1 each PO DAILY Lisinopril [Zestril] 10 mg PO DAILY Multivit-Minerals/Folic/Ginkgo [One Daily For Women 50+ Adv Tb] 1 each PO DAILY diazePAM [Valium] 2 mg PO BID 3 Days #6 tablet Alendronate Sodium/Vitamin D3 [Fosamax Plus D 70 mg-2,800 Iu] 70 mg PO TU Loratadine [Claritin] 10 mg PO DAILY HYDROcodone/Acet 5/325 mg [[place] 5-325 mg] 1 tab PO Q6H PRN 4 Days #7 tablet PRN Reason: Moderate Pain OxyCODONE Immed Rel [Roxicodone 5 MG] 10 mg PO Q6H PRN 4 Days #7 tablet PRN Reason: Severe Pain Sennosides/Docusate Sodium [Senna Plus] 2 each PO BID PRN 15 Days #30 tablet PRN Reason: Constipation Furosemide [Lasix] 20 mg PO Q48H Omeprazole [PriLOSEC] 20 mg PO DAILY Zonisamide [Zonegran] 100 mg PO HS Pravastatin Sodium [Pravachol] 40 mg PO QPM Amitriptyline [Elavil] 50 mg PO HS Polyethylene Glycol 3350 [MiraLAX] 17 gm PO DAILY PRN powd.pack PRN Reason: Constipation Home Medications: Amitriptyline [Elavil] 50 mg PO HS 07/09/16 [History] Furosemide [Lasix] 20 mg PO Q48H 07/09/16 [History] Omeprazole [PriLOSEC] 20 mg PO DAILY 07/09/16 [History] Pravastatin Sodium [Pravachol] 40 mg PO QPM 07/09/16 [History] Zonisamide [Zonegran] 100 mg PO HS 07/09/16 [History] Aspirin Enteric Coated [Aspirin EC] 162 mg PO DAILY 06/04/18 [History] Calcium Carbonate [Calcium] 500 mg PO DAILY 06/04/18 [History] Lactobacillus Acidophilus/Fos [Acidophilus Probiotic Tablet] 1 each PO DAILY 06/04/18 [History] Lisinopril [Zestril] 10 mg PO DAILY 06/04/18 [History] Multivit-Minerals/Folic/Ginkgo [One Daily For Women 50+ Adv Tb] 1 each PO DAILY 06/04/18 [History] diazePAM [Valium] 2 mg PO BID 3 Days #6 tablet 06/08/18 [Rx] Polyethylene Glycol 3350 [MiraLAX] 17 gm PO DAILY PRN powd.pack 06/16/18 [Rx] Alendronate Sodium/Vitamin D3 [Fosamax Plus D 70 mg-2,800 Iu] 70 mg PO TU 04/13/19 [History] Loratadine [Claritin] 10 mg PO DAILY 04/13/19 [History] HYDROcodone/Acet 5/325 mg [Center 5-325 mg] 1 tab PO Q6H PRN 4 Days #7 tablet 04/15/19 [Rx] OxyCODONE Immed Rel [Roxicodone 5 MG] 10 mg PO Q6H PRN 4 Days #7 tablet 04/15/19 [Rx] Sennosides/Docusate Sodium [Senna Plus] 2 each PO BID PRN 15 Days #30 tablet 04/15/19 [Rx] Allergies/Adverse Reactions: Allergy/AdvReac Type Severity Reaction Status Date / Time Penicillins Allergy Hives, Verified 04/14/19 19:37 Swelling levofloxacin [From Levaquin] AdvReac Tendonitis Verified 04/14/19 19:37 Date of admission: 04/16/19 17:12 Primary care physician: César Truong DO Consults: 04/16/19 16:57 Consult to Door Core Assembler [CONS] Routine Reason for SW Consult: d/c planning 04/16/19 18:57 Consult to Occupational Therapy [CONS] Routine Comment: Evaluate, develop and implement POC Reason for Consult: left humerus fracture Does patient have active BEDREST order?: No Is patient medically & hemodynamically stable?: Yes Consult to Physical Therapy [CONS] Routine Comment: Evaluate, develop and implement POC Reason for Consult: s/p left humerus fracture Does patient have active BEDREST order?: No Is patient medically & hemodynamically stable?: Yes Consult to Recreational Therapy [CONS] Routine Comment: Evaluate, develop and implement POC Discharging clinician: Ross Calloway Anticipated date of discharge: 04/23/19 - Constitutional Vitals: Temp Pulse Resp BP Pulse Ox 98.3 F 79 18 126/70 96 04/23/19 07:00 04/23/19 07:00 04/23/19 07:00 04/23/19 07:00 04/23/19 07:00 General appearance: Present: A&O X 3, pleasant, no acute distress, answers questions appropriately - Head Head exam: Present: atraumatic, normocephalic - Eye Eye exam: Present: PERRL, conjuntiva pink, sclera anicteric Pupils: Present: PERRL - Neck Neck exam general surgery: Present: supple, trachea midline. Absent: lymphadenopathy - Respiratory Respiratory exam: Present: CTAB. Absent: accessory muscle use, rales, rhonchi, wheezes - Cardiovascular Cardiovascular exam: Present: RRR, +S1, +S2. Absent: diastolic murmur, gallop, rubs, systolic murmur - GI/Abdominal GI/Abdominal exam: Present: normal bowel sounds, soft, no peritoneal signs. Absent: distended, tenderness - Extremities Exam Extremities exam: Present: warm, radial pulses palpable and symmetrical. Absent: calf tenderness, cyanotic, pedal edema Additional comments: Left upper incision dressing dry and intact. No drainage. Non-pitting edema to bilateral pedal area. - Neurological Exam Neurological exam: Present: CN II-XII intact, oriented X3, no focal deficits. Absent: pronater drift, facial droop, speech deficit - Skin Skin exam: Present: dry, intact - Patient Status Disposition: Home Health Service Condition: Good Functional capacity at discharge: independent ambulation Overall status at discharge: patient is progressing back to baseline - Discharge Instructions Follow Up With: César Truong DO [Primary Care Provider] - - Diet and Activity Activity: as per physical therapy Diet: advance to your usual diet
[2019-04-23] MEDS: Acetaminophen 325 MG TABLET PO PRN (13:57)
== END 2019-04-23 15:20 | disposition home health service (06) | DRG 561 ==
LOC: INPGRE 17:12

== ENCOUNTER 2022-02-28 11:22 | Observation (INO) ==
[2022-02-28 11:50] LABS: Basophils # 0.1 K/mcL (0.0-0.2); Basophils % 0.6 %; Eosinophils # 0.1 K/mcL (0.0-0.6); Eosinophils % 0.8 %; Hematocrit 36.6 % (35.3-44.9); Hemoglobin 12.4 g/dL (11.5-15.4); Immature Granulocytes % 0.6 % (0-4); Lymphocytes # 2.9 K/mcL (0.6-4.6); Mean Corpuscular HGB Conc 33.9 g/dL (31.6-35.5); Mean Corpuscular Hemoglobin 32.6 pg (28.0-33.3); Mean Corpuscular Volume 96.3 fL (83.0-100.0); Mean Platelet Volume 9.3 fL (9.4-12.4); Monocytes # 1.1 K/mcL (0.0-1.3); Monocytes % 11.1 %; Neutrophils # 5.5 K/mcL (1.6-8.9); Platelet Count 374 K/mcL (140-400); Red Cell Distribution Width 14.3 % (11.5-14.5); Segmented Neutrophils % 56.9 %; White Blood Count 9.7 K/mcL (4.3-11.1)
[2022-02-28 11:59] LABS: Alanine Aminotransferase 22 Units/L (7-52); Albumin 4.1 g/dL (3.5-5.7); Albumin/Globulin Ratio 1.8 (1.1-2.2); Alkaline Phosphatase 114 Units/L (34-104); Aspartate Amino Transferase 22 Units/L (13-39); BUN/Creatinine Ratio 15 (6-26); Bilirubin,Total 0.6 mg/dL (0.3-1.0); Blood Urea Nitrogen 15 mg/dL (8-23); Calcium 9.7 mg/dL (8.6-10.3); Carbon Dioxide 31 mEq/L (23-29); Chloride 90 mEq/L (98-107); Globulin 2.3 g/dL (2.4-3.5); Glucose 92 mg/dL (70-105); Magnesium 1.9 mg/dL (1.6-2.6); Osmolality,Calculated 264 (280-300); Phosphorous 2.8 mg/dL (2.7-4.5); Potassium 2.8 mEq/L (3.5-5.1); Sodium 127 mEq/L (136-145); Total Protein 6.4 g/dL (6.4-8.9); eGFR For African Americans > 60 (> 60); eGFR For Non-African Americans 53 (> 60)
[2022-02-28 12:02] LABS: Troponin I < 0.03 ng/mL (< 0.04)
[2022-02-28 12:04] LABS: Bilirubin,Urine Negative (Negative); Blood,Urine Negative (Negative); Clarity,Urine Clear (Clear); Color,Urine Yellow (Yellow); Glucose,Urine (UA) Normal (Normal); Ketones,Urine Negative (Negative); Leukocyte Esterase,Urine Trace (Negative); Nitrite,Urine Negative (Negative); PH,Urine 7.5 pH Units (5.0-8.0); Protein,Urine Negative (Neg-Trace); Specific Gravity,Urine 1.015 (1.010-1.025); Urobilinogen,Urine Normal (Normal)
[2022-02-28] MEDS ORDERED: 0.9 % Sodium Chloride 500 ML IVC ONE (12:08)
[2022-02-28 12:20] LABS: Bacteria,Urine Few per hpf (None-Few); RBC,Urine 0-3 per hpf (0-3); Squamous Epithelial Cell,Urine Few per hpf (None-Few)
[2022-02-28] MEDS ORDERED: Naloxone 0.4 MG/ML INJ IVP PRN (14:20)
[2022-02-28] MEDS: 0.9 % Sodium Chloride w KCl 20 MEQ/1,000 ML MLS IVC SCH (15:38)
[2022-02-28] MEDS: diazePAM 2 MG TABLET PO SCH ×2 (15:39→20:35)
[2022-02-28] MEDS: Zonisamide 100 MG CAPSULE PO SCH (20:34)
[2022-02-28] MEDS: Ibuprofen 800 MG TABLET PO PRN (20:54)
[2022-03-01] MEDS: 0.9 % Sodium Chloride w KCl 20 MEQ/1,000 ML MLS IVC SCH (02:05)
[2022-03-01 02:54] LABS: Basophils # 0.1 K/mcL (0.0-0.2); Eosinophils # 0.2 K/mcL (0.0-0.6); Eosinophils % 2.5 %; Hematocrit 31.9 % (35.3-44.9); Hemoglobin 10.8 g/dL (11.5-15.4); Immature Granulocytes % 0.7 % (0-4); Lymphocytes # 2.8 K/mcL (0.6-4.6); Lymphocytes % 38.9 %; Mean Corpuscular HGB Conc 33.9 g/dL (31.6-35.5); Mean Corpuscular Hemoglobin 32.6 pg (28.0-33.3); Mean Corpuscular Volume 96.4 fL (83.0-100.0); Mean Platelet Volume 9.1 fL (9.4-12.4); Monocytes # 0.8 K/mcL (0.0-1.3); Monocytes % 11.3 %; Neutrophils # 3.3 K/mcL (1.6-8.9); Platelet Count 315 K/mcL (140-400); Red Blood Count 3.31 M/mcL (3.82-4.97); Red Cell Distribution Width 14.4 % (11.5-14.5); Segmented Neutrophils % 45.6 %; White Blood Count 7.2 K/mcL (4.3-11.1)
[2022-03-01 03:20] LABS: BUN/Creatinine Ratio 15 (6-26); Blood Urea Nitrogen 14 mg/dL (8-23); Calcium 8.6 mg/dL (8.6-10.3); Carbon Dioxide 27 mEq/L (23-29); Chloride 100 mEq/L (98-107); Glucose 88 mg/dL (70-105); Osmolality,Calculated 272 (280-300); Potassium 4.1 mEq/L (3.5-5.1); Sodium 131 mEq/L (136-145); eGFR For African Americans > 60 (> 60); eGFR For Non-African Americans 57 (> 60)
[2022-03-01] MEDS: *HR* Enoxaparin 40 MG/0.4 ML SYRINGE SQ SCH (05:05)
[2022-03-01] MEDS: Lactobacillus 1 EACH CAP.SPRINK PO SCH (09:07)
[2022-03-01] MEDS: Multivit/Ca/Min/Fe/FA 1 TAB TABLET PO SCH (09:08)
[2022-03-01] MEDS: lisinopriL 10 MG TABLET PO SCH (09:08)
[2022-03-01] MEDS: Loratadine 10 MG TABLET PO SCH (09:08)
[2022-03-01] MEDS: Cholecalciferol (D-3) 1,000 UNIT (25MCG) TABLET PO SCH (09:08)
[2022-03-01] MEDS: PARoxetine 20 MG TABLET PO SCH (09:31)
[2022-03-01] MEDS: Aspirin Enteric Coated 81 MG Tablet PO SCH (12:21)
[2022-03-01] MEDS: diazePAM 2 MG TABLET PO SCH ×3 (12:21→20:58)
[2022-03-01] MEDS: amLODIPine 5 MG TABLET PO SCH (13:53)
[2022-03-01] MEDS: Ibuprofen 800 MG TABLET PO PRN ×2 (13:57→21:00)
[2022-03-01] MEDS ORDERED: 0.9 % Sodium Chloride 1,000 ML IVC SCH (14:30)
[2022-03-01] MEDS: Zonisamide 100 MG CAPSULE PO SCH (20:59)
[2022-03-02 05:14] LABS: Basophils # 0.1 K/mcL (0.0-0.2); Basophils % 1.2 %; Eosinophils # 0.3 K/mcL (0.0-0.6); Hemoglobin 11.1 g/dL (11.5-15.4); Lymphocytes # 1.9 K/mcL (0.6-4.6); Mean Corpuscular HGB Conc 33.6 g/dL (31.6-35.5); Mean Corpuscular Hemoglobin 32.6 pg (28.0-33.3); Mean Corpuscular Volume 96.8 fL (83.0-100.0); Monocytes # 0.6 K/mcL (0.0-1.3); Monocytes % 10.1 %; Platelet Count 308 K/mcL (140-400); Red Blood Count 3.41 M/mcL (3.82-4.97); Red Cell Distribution Width 14.4 % (11.5-14.5); Segmented Neutrophils % 50.7 %; White Blood Count 5.8 K/mcL (4.3-11.1)
[2022-03-02] MEDS: *HR* Enoxaparin 40 MG/0.4 ML SYRINGE SQ SCH (05:19)
[2022-03-02 05:32] LABS: BUN/Creatinine Ratio 12 (6-26); Blood Urea Nitrogen 10 mg/dL (8-23); Calcium 8.8 mg/dL (8.6-10.3); Carbon Dioxide 25 mEq/L (23-29); Chloride 102 mEq/L (98-107); Glucose 82 mg/dL (70-105); Magnesium 1.9 mg/dL (1.6-2.6); Osmolality,Calculated 274 (280-300); Potassium 3.9 mEq/L (3.5-5.1); Sodium 133 mEq/L (136-145); eGFR For African Americans > 60 (> 60); eGFR For Non-African Americans > 60 (> 60)
[2022-03-02] MEDS: Lactobacillus 1 EACH CAP.SPRINK PO SCH (08:35)
[2022-03-02] MEDS: Aspirin Enteric Coated 81 MG Tablet PO SCH (08:35)
[2022-03-02] MEDS: Cholecalciferol (D-3) 1,000 UNIT (25MCG) TABLET PO SCH (08:35)
[2022-03-02] MEDS: amLODIPine 5 MG TABLET PO SCH (08:35)
[2022-03-02] MEDS: Multivit/Ca/Min/Fe/FA 1 TAB TABLET PO SCH (08:36)
[2022-03-02] MEDS: PARoxetine 20 MG TABLET PO SCH (08:36)
[2022-03-02] MEDS: Loratadine 10 MG TABLET PO SCH (08:36)
[2022-03-02] MEDS: diazePAM 2 MG TABLET PO SCH ×3 (08:36→22:10)
[2022-03-02] MEDS: lisinopriL 10 MG TABLET PO SCH (08:36)
[2022-03-02] MEDS: Ibuprofen 800 MG TABLET PO PRN (22:09)
[2022-03-02] MEDS: Zonisamide 100 MG CAPSULE PO SCH (22:09)
[2022-03-03 04:59] LABS: Basophils # 0.1 K/mcL (0.0-0.2); Basophils % 1.1 %; Eosinophils # 0.3 K/mcL (0.0-0.6); Eosinophils % 4.7 %; Hematocrit 34.8 % (35.3-44.9); Hemoglobin 11.7 g/dL (11.5-15.4); Immature Granulocytes % 0.8 % (0-4); Lymphocytes # 1.7 K/mcL (0.6-4.6); Mean Corpuscular HGB Conc 33.6 g/dL (31.6-35.5); Mean Corpuscular Hemoglobin 32.5 pg (28.0-33.3); Mean Corpuscular Volume 96.7 fL (83.0-100.0); Mean Platelet Volume 9.2 fL (9.4-12.4); Monocytes # 0.8 K/mcL (0.0-1.3); Monocytes % 11.6 %; Neutrophils # 3.7 K/mcL (1.6-8.9); Platelet Count 325 K/mcL (140-400); Red Cell Distribution Width 14.4 % (11.5-14.5); Segmented Neutrophils % 55.8 %; White Blood Count 6.7 K/mcL (4.3-11.1)
[2022-03-03] MEDS: *HR* Enoxaparin 40 MG/0.4 ML SYRINGE SQ SCH (06:19)
[2022-03-03] MEDS: PARoxetine 20 MG TABLET PO SCH (06:19)
[2022-03-03 07:14] LABS: BUN/Creatinine Ratio 11 (6-26); Blood Urea Nitrogen 10 mg/dL (8-23); Calcium 9.3 mg/dL (8.6-10.3); Carbon Dioxide 25 mEq/L (23-29); Chloride 102 mEq/L (98-107); Glucose 104 mg/dL (70-105); Osmolality,Calculated 277 (280-300); Potassium 3.9 mEq/L (3.5-5.1); Sodium 134 mEq/L (136-145); eGFR For African Americans > 60 (> 60); eGFR For Non-African Americans > 60 (> 60)
[2022-03-03] MEDS: Multivit/Ca/Min/Fe/FA 1 TAB TABLET PO SCH (09:08)
[2022-03-03] MEDS: Lactobacillus 1 EACH CAP.SPRINK PO SCH (09:08)
[2022-03-03] MEDS: Cholecalciferol (D-3) 1,000 UNIT (25MCG) TABLET PO SCH (09:08)
[2022-03-03] MEDS: lisinopriL 10 MG TABLET PO SCH (09:08)
[2022-03-03] MEDS: Aspirin Enteric Coated 81 MG Tablet PO SCH (09:08)
[2022-03-03] MEDS: diazePAM 2 MG TABLET PO SCH ×3 (09:09→21:37)
[2022-03-03] MEDS: amLODIPine 5 MG TABLET PO SCH (09:09)
[2022-03-03] MEDS: Loratadine 10 MG TABLET PO SCH (09:09)
[2022-03-03] MEDS: Ibuprofen 800 MG TABLET PO PRN (16:30)
[2022-03-03] MEDS: Zonisamide 100 MG CAPSULE PO SCH (21:36)
[2022-03-04] MEDS: *HR* Enoxaparin 40 MG/0.4 ML SYRINGE SQ SCH (06:08)
[2022-03-04] MEDS: PARoxetine 20 MG TABLET PO SCH (06:08)
[2022-03-04] MEDS: Aspirin Enteric Coated 81 MG Tablet PO SCH (09:00)
[2022-03-04] MEDS: Cholecalciferol (D-3) 1,000 UNIT (25MCG) TABLET PO SCH (09:00)
[2022-03-04] MEDS: Multivit/Ca/Min/Fe/FA 1 TAB TABLET PO SCH (09:00)
[2022-03-04] MEDS: amLODIPine 5 MG TABLET PO SCH (09:01)
[2022-03-04] MEDS: diazePAM 2 MG TABLET PO SCH ×3 (09:01→20:10)
[2022-03-04] MEDS: Loratadine 10 MG TABLET PO SCH (09:01)
[2022-03-04] MEDS: lisinopriL 10 MG TABLET PO SCH (09:01)
[2022-03-04] MEDS: Ibuprofen 800 MG TABLET PO PRN (20:09)
[2022-03-04] MEDS: Zonisamide 100 MG CAPSULE PO SCH (20:10)
[2022-03-05] MEDS: Ibuprofen 800 MG TABLET PO PRN ×2 (03:45→09:17)
[2022-03-05] MEDS: PARoxetine 20 MG TABLET PO SCH (04:33)
[2022-03-05] MEDS: *HR* Enoxaparin 40 MG/0.4 ML SYRINGE SQ SCH (04:33)
[2022-03-05 05:03] LABS: Basophils # 0.1 K/mcL (0.0-0.2); Basophils % 0.9 %; Eosinophils # 0.2 K/mcL (0.0-0.6); Eosinophils % 3.2 %; Hematocrit 35.1 % (35.3-44.9); Hemoglobin 11.6 g/dL (11.5-15.4); Immature Granulocytes % 0.5 % (0-4); Lymphocytes # 2.1 K/mcL (0.6-4.6); Lymphocytes % 32.9 %; Mean Corpuscular Hemoglobin 32.3 pg (28.0-33.3); Mean Corpuscular Volume 97.8 fL (83.0-100.0); Mean Platelet Volume 9.4 fL (9.4-12.4); Monocytes # 0.8 K/mcL (0.0-1.3); Neutrophils # 3.3 K/mcL (1.6-8.9); Platelet Count 296 K/mcL (140-400); Red Blood Count 3.59 M/mcL (3.82-4.97); Red Cell Distribution Width 14.7 % (11.5-14.5); Segmented Neutrophils % 50.5 %; White Blood Count 6.5 K/mcL (4.3-11.1)
[2022-03-05 05:14] LABS: BUN/Creatinine Ratio 13 (6-26); Blood Urea Nitrogen 13 mg/dL (8-23); Carbon Dioxide 26 mEq/L (23-29); Chloride 103 mEq/L (98-107); Glucose 99 mg/dL (70-105); Osmolality,Calculated 278 (280-300); Potassium 3.7 mEq/L (3.5-5.1); Sodium 134 mEq/L (136-145); eGFR For African Americans > 60 (> 60); eGFR For Non-African Americans 51 (> 60)
[2022-03-05] MEDS: Lactobacillus 1 EACH CAP.SPRINK PO SCH (09:15)
[2022-03-05] MEDS: Aspirin Enteric Coated 81 MG Tablet PO SCH (09:15)
[2022-03-05] MEDS: lisinopriL 10 MG TABLET PO SCH (09:15)
[2022-03-05] MEDS: Multivit/Ca/Min/Fe/FA 1 TAB TABLET PO SCH (09:15)
[2022-03-05] MEDS: amLODIPine 5 MG TABLET PO SCH (09:16)
[2022-03-05] MEDS: Cholecalciferol (D-3) 1,000 UNIT (25MCG) TABLET PO SCH (09:16)
[2022-03-05] MEDS: diazePAM 2 MG TABLET PO SCH (09:16)
[2022-03-05] MEDS: Loratadine 10 MG TABLET PO SCH (09:16)
[2022-03-05 11:46] VITALS: BP 138/76; PULSE 78; RESP 15; TEMP 98; O2SAT 97
[2022-03-05] MEDS ORDERED: NON-FORMULARY MEDICATION 1 EACH EACH (Alendronate Sodium/Vitamin D3 [Fosamax Plus D 70 Mg- PO SCH (14:29)
== END 2022-03-05 14:20 | disposition home health service (06) ==
LOC: INPGRE 11:22 → EMEROOGRE 11:22 → SUATTDRO 13:08 → INPGRE 13:33
PROVIDERS: ADMIT Internal Medicine; ATTEND Family Medicine